=== PATIENT | female | born 1960 | race Caucasian/White ===

== ENCOUNTER 2016-12-22 06:45 | Outpatient (CLI) | payer MEDICARE | END 2016-12-22 06:46 | disposition home or self-care (01) | DX: K76.0 Fatty (change of) liver, not elsewhere classified (principal); R71.8 Other abnormality of red blood cells; E11.9 Type 2 diabetes mellitus without complications; E78.5 Hyperlipidemia, unspecified ==

== ENCOUNTER 2017-08-18 14:38 | Outpatient (CLI) | payer MEDICARE ==
[2017-08-18 13:17] LABS: BASOPHILS % (AUTO) 0.9 %; EOSINOPHILS # (AUTO) 0.2 10^3/uL (0.0-0.7); EOSINOPHILS % (AUTO) 3.6 %; HCT - HEMATOCRIT 42.3 % (37.0-47.0); HGB - HEMOGLOBIN 13.9 g/dL (12.0-16.0); LYMPHOCYTES # (AUTO) 1.3 10^3/uL (1.5-3.5); LYMPHOCYTES % (AUTO) 26.8 %; MEAN CORPUSCULAR HEMOGLOBIN 28.4 pg (27.0-31.0); MEAN CORPUSCULAR HGB CONC 32.8 g/dL (32.0-36.0); MEAN CORPUSCULAR VOLUME 86.6 fL (81.0-99.0); MEAN PLATELET VOLUME 8.4 fL (7.9-10.8); MONOCYTES # (AUTO) 0.3 10^3/uL (0.0-1.0); MONOCYTES % (AUTO) 5.4 %; NEUTROPHILS % (AUTO) 63.3 %; NUCLEATED RED BLOOD CELLS AUTO 0.1 /100WBC; RED BLOOD COUNT 4.88 10^6/uL (4.20-5.40); RED CELL DISTRIBUTION WIDTH 15.1 % (12.0-15.0); UNCORRECTED WHITE BLOOD COUNT 4.7 x10^3/uL; WHITE BLOOD COUNT 4.7 x10^3/uL (4.8-10.8)
[2017-08-18 13:52] LABS: ALBUMIN/GLOBULIN RATIO 1.1 (1.0-2.2); BILIRUBIN,TOTAL 0.7 mg/dL (0.2-1.0); BUN - BLOOD UREA NITROGEN 11 mg/dL (6-20); CARBON DIOXIDE - CO2 32 mmol/L (21-32); CHLORIDE 95 mmol/L (101-111); CHOL/HDL RATIO 7.9 (<4.4); CHOLESTEROL 245 mg/dL; CREATININE 0.6 mg/dL (0.4-1.0); GFR - MDRD 103 (>89); GLUCOSE 272 mg/dL (70-100); HDL CHOLESTEROL 31 mg/dL; POTASSIUM 4.2 mmol/L (3.5-5.0); SODIUM 136 mmol/L (135-145); TOTAL PROTEIN 7.2 g/dL (6.7-8.2); TRIGLYCERIDES 612 mg/dL
[2017-08-18 14:07] LABS: HEMOGLOBIN A1C 1.42 g/dL
[2017-08-18 14:29] LABS: LDL CHOLESTEROL,DIRECT 115 mg/dL
== END 2017-08-18 14:39 | disposition home or self-care (01) ==
LOC: LAB.N 14:38
PROVIDERS: ATTEND Nurse Practitioner Gerontology
DX: K76.0 Fatty (change of) liver, not elsewhere classified (principal); E78.5 Hyperlipidemia, unspecified; E11.9 Type 2 diabetes mellitus without complications; I50.9 Heart failure, unspecified
CPT/HCPCS: 36415; 80053; 80061; 83036; 83880; 85025

== ENCOUNTER 2017-09-05 13:44 | Outpatient (CLI) | payer MEDICARE | END 2017-09-05 13:45 | disposition home or self-care (01) | LOC: SC 13:44 | PROVIDERS: ATTEND Internal Medicine Pulmonary Disease | DX: G47.33 Obstructive sleep apnea (adult) (pediatric) (principal) | CPT/HCPCS: 99213; G0463; 99212 ==

== ENCOUNTER 2017-11-21 14:15 | Outpatient (CLI) | payer MEDICARE ==
[2017-11-21 19:10] LABS: CHOL/HDL RATIO 4.4 (<4.4); CHOLESTEROL 176 mg/dL; HDL CHOLESTEROL 40 mg/dL; LDL CHOLESTEROL,CALCULATED 85 mg/dL; LDL/HDL RATIO 2.1 (<4.4); VLDL CHOLESTEROL 51 mg/dL
[2017-11-21 19:45] LABS: HB2 TOTAL 14.5 g/dL; HEMOGLOBIN A1C 0.77 g/dL
== END 2017-11-21 14:16 | disposition home or self-care (01) ==
LOC: LAB.N 14:15
PROVIDERS: ATTEND Nurse Practitioner Gerontology
DX: E78.1 Pure hyperglyceridemia (principal); E11.9 Type 2 diabetes mellitus without complications
CPT/HCPCS: 36415; 80061; 82043; 83036

== ENCOUNTER 2017-11-29 21:33 | Outpatient (CLI) | payer MEDICARE | END 2017-11-29 21:34 | disposition home or self-care (01) | LOC: SC 21:33 | PROVIDERS: ATTEND Internal Medicine Pulmonary Disease | DX: G47.33 Obstructive sleep apnea (adult) (pediatric) (principal); R09.02 Hypoxemia | CPT/HCPCS: 95810 ==

== ENCOUNTER 2017-11-30 12:20 | Outpatient (CLI) | payer MEDICARE ==
--- NOTE | 2017-11-30 19:50 | XRAY Report ---
DATE OF SERVICE: 11/30/2017 TWO VIEW CHEST: 11/30/2017 CLINICAL INDICATION: Shortness of breath. COMPARISON: 01/05/2015 Frontal and lateral views of the chest demonstrate a normal cardiac silhouette. 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 No new consolidation, effusion, or pneumothorax is present. Basilar atelectasis appears unchanged. IMPRESSION: No evidence of acute cardiopulmonary disease. TD: 11/30/2017 20:49
== END 2017-11-30 12:21 | disposition home or self-care (01) ==
LOC: DI 12:20
PROVIDERS: ATTEND Nurse Practitioner Gerontology
DX: R06.02 Shortness of breath (principal)
CPT/HCPCS: 71046

== ENCOUNTER 2017-12-07 14:44 | Outpatient (CLI) | payer MEDICARE | END 2017-12-07 14:45 | disposition home or self-care (01) | LOC: LAB.N 14:44 | PROVIDERS: ATTEND Nurse Practitioner Gerontology | DX: R06.02 Shortness of breath (principal) | CPT/HCPCS: 36415; 83880; 85379 ==

== ENCOUNTER 2017-12-11 11:18 | Outpatient (CLI) | payer MEDICARE ==
[2017-12-11 13:17] LABS: CREATININE 0.7 mg/dL (0.4-1.0)
== END 2017-12-11 11:19 | disposition home or self-care (01) ==
LOC: LAB.N 11:18
PROVIDERS: ATTEND Nurse Practitioner Gerontology
DX: R06.02 Shortness of breath (principal); E11.9 Type 2 diabetes mellitus without complications
CPT/HCPCS: 36415; 82565

== ENCOUNTER 2017-12-25 11:52 | Outpatient (CLI) | payer MEDICARE ==
[2017-12-25] MEDS ORDERED: IOPAMIDOL-300 100 ML VIAL ONE (12:04)
[2017-12-25] MEDS ORDERED: IOPAMIDOL-300 100 ML VIAL IVP ONE (12:29)
--- NOTE | 2017-12-25 14:49 | CT Report ---
DATE OF SERVICE: 12/25/2017 CT PULMONARY ANGIOGRAM: 12/25/2017 CLINICAL INDICATION: Shortness of breath. COMPARISON: 01/03/2015. TECHNIQUE: Axial CT images of the chest were obtained with 58 mL Isovue 300 intravenously. Sagittal and coronal reconstructions were performed FINDINGS: The heart and great vessels demonstrate atherosclerotic calcifications. No hilar or mediastinal lymphadenopathy is present. No pulmonary embolus is noted. Bibasilar atelectasis is present. No pulmonary nodule or mass lesion is appreciated. No infiltrate, effusion, or pneumothorax is present. Limited evaluation of upper abdominal structures demonstrates normal adrenal glands. Right diaphragmatic eventration is stable. Osseous structures demonstrate degenerative changes. IMPRESSION: NO EVIDENCE OF PULMONARY EMBOLUS. NO SIGNIFICANT INTERVAL CHANGE. In accordance with CT protocol optimization, one or more of the following dose reduction techniques were utilized for this exam: automated exposure control, adjustment of mA and/or KV based on patient size, or use of iterative reconstructive technique. TD: 12/25/2017 14:48
== END 2017-12-25 11:53 | disposition home or self-care (01) ==
LOC: DI 11:52
PROVIDERS: ATTEND Nurse Practitioner Gerontology
DX: R06.02 Shortness of breath (principal)
CPT/HCPCS: 71275; Q9967

== ENCOUNTER 2018-01-22 14:06 | Outpatient (CLI) | payer MEDICARE | END 2018-01-22 14:07 | disposition home or self-care (01) | LOC: SC 14:06 | PROVIDERS: ATTEND Internal Medicine Pulmonary Disease | DX: G47.33 Obstructive sleep apnea (adult) (pediatric) (principal) | CPT/HCPCS: 99213; G0463; 99212 ==

== ENCOUNTER 2018-02-28 09:00 | Outpatient (CLI) | payer MEDICARE ==
[2018-02-28 13:00] LABS: CALCIUM 8.9 mg/dL (8.5-10.3); CREATININE 0.7 mg/dL (0.4-1.0)
[2018-02-28 13:34] LABS: HB2 TOTAL 15.2 g/dL; HEMOGLOBIN A1C 0.81 g/dL
== END 2018-02-28 09:01 | disposition home or self-care (01) ==
LOC: LAB.N 09:00
PROVIDERS: ATTEND Nurse Practitioner Gerontology
DX: E11.9 Type 2 diabetes mellitus without complications (principal)
CPT/HCPCS: 36415; 80048; 82043; 83036

== ENCOUNTER 2018-08-23 08:22 | Outpatient (CLI) | payer MEDICARE ==
[2018-08-23 13:05] LABS: CHOL/HDL RATIO 4.9 (<4.4); CHOLESTEROL 186 mg/dL; HDL CHOLESTEROL 38 mg/dL; LDL CHOLESTEROL,CALCULATED 98 mg/dL; LDL/HDL RATIO 2.6 (<4.4); VLDL CHOLESTEROL 50 mg/dL
== END 2018-08-23 08:23 | disposition home or self-care (01) ==
LOC: LAB.N 08:22
PROVIDERS: ATTEND Nurse Practitioner Gerontology
DX: E78.1 Pure hyperglyceridemia (principal)
CPT/HCPCS: 36415; 80061; 83721

== ENCOUNTER 2018-09-11 08:53 | Outpatient (CLI) | payer MEDICARE | END 2018-09-11 08:54 | disposition home or self-care (01) | LOC: RT.N 08:53 | PROVIDERS: ATTEND Nurse Practitioner Gerontology | DX: J44.9 Chronic obstructive pulmonary disease, unspecified (principal); I11.0 Hypertensive heart disease with heart failure; I50.9 Heart failure, unspecified; E78.5 Hyperlipidemia, unspecified; R01.1 Cardiac murmur, unspecified; E11.9 Type 2 diabetes mellitus without complications; R06.02 Shortness of breath; E78.1 Pure hyperglyceridemia | CPT/HCPCS: 36415; 80053; 82553; 83036; 83880; 84484; 85025; 93005 ==

== ENCOUNTER 2018-09-11 09:38 | Outpatient (CLI) | payer MEDICARE ==
[2018-09-11 12:21] LABS: BASOPHILS % (AUTO) 0.5 %; EOSINOPHILS # (AUTO) 0.2 10^3/uL (0.0-0.7); EOSINOPHILS % (AUTO) 3.9 %; HGB - HEMOGLOBIN 13.9 g/dL (12.0-16.0); LYMPHOCYTES # (AUTO) 1.2 10^3/uL (1.5-3.5); LYMPHOCYTES % (AUTO) 19.1 %; MEAN CORPUSCULAR HEMOGLOBIN 28.8 pg (27.0-31.0); MEAN CORPUSCULAR HGB CONC 33.2 g/dL (32.0-36.0); MEAN CORPUSCULAR VOLUME 86.7 fL (81.0-99.0); MEAN PLATELET VOLUME 8.3 fL (7.9-10.8); MONOCYTES # (AUTO) 0.3 10^3/uL (0.0-1.0); NEUTROPHILS # (AUTO) 4.3 10^3/uL (1.5-6.6); NEUTROPHILS % (AUTO) 71.5 %; PLT - PLATELET COUNT 233 10^3/uL (130-450); RED BLOOD COUNT 4.84 10^6/uL (4.20-5.40); RED CELL DISTRIBUTION WIDTH 14.8 % (12.0-15.0); WHITE BLOOD COUNT 6.1 x10^3/uL (4.8-10.8)
[2018-09-11 12:36] LABS: ALBUMIN 4.1 g/dL (3.2-5.5); ALBUMIN/GLOBULIN RATIO 1.2 (1.0-2.2); BILIRUBIN,TOTAL 0.8 mg/dL (0.2-1.0); CALCIUM 9.4 mg/dL (8.5-10.3); CREATININE 0.5 mg/dL (0.4-1.0); TOTAL PROTEIN 7.6 g/dL (6.7-8.2)
[2018-09-11 12:38] LABS: TROPONIN I < 0.04 ng/mL (<0.49)
[2018-09-11 12:40] LABS: CREATINE KINASE MB 9.5 ng/mL (0.6-6.3)
[2018-09-11 12:59] LABS: HB2 TOTAL 14.6 g/dL; HEMOGLOBIN A1C 0.77 g/dL
== END 2018-09-11 09:39 | disposition home or self-care (01) ==
LOC: LAB.N 09:38
PROVIDERS: ATTEND Nurse Practitioner Gerontology
DX: J44.9 Chronic obstructive pulmonary disease, unspecified (principal); R01.1 Cardiac murmur, unspecified; E11.9 Type 2 diabetes mellitus without complications; R06.02 Shortness of breath; I50.9 Heart failure, unspecified; E78.1 Pure hyperglyceridemia
CPT/HCPCS: 36415; 80053; 82553; 83036; 83880; 84484; 85025

== ENCOUNTER 2020-04-06 13:33 | Outpatient (CLI) | payer MEDICARE ==
[2020-04-06 18:01] LABS: BASOPHILS % (AUTO) 0.7 %; EOSINOPHILS # (AUTO) 0.3 10^3/uL (0.0-0.7); EOSINOPHILS % (AUTO) 4.2 %; HGB - HEMOGLOBIN 15.6 g/dL (12.0-16.0); LYMPHOCYTES # (AUTO) 1.2 10^3/uL (1.5-3.5); LYMPHOCYTES % (AUTO) 20.8 %; MEAN CORPUSCULAR HGB CONC 30.1 g/dL (32.0-36.0); MEAN CORPUSCULAR VOLUME 89.8 fL (81.0-99.0); MONOCYTES # (AUTO) 0.4 10^3/uL (0.0-1.0); MONOCYTES % (AUTO) 5.9 %; NEUTROPHILS % (AUTO) 67.9 %; PLT - PLATELET COUNT 231 10^3/uL (130-450); RED BLOOD COUNT 5.77 10^6/uL (4.20-5.40)
[2020-04-06 18:05] LABS: ALBUMIN 3.8 g/dL (3.2-5.5); ALBUMIN/GLOBULIN RATIO 1.1 (1.0-2.2); ALKALINE PHOSPHATASE 89 IU/L (42-121); ALT ALANINE AMINOTRANSFERASE 16 IU/L (10-60); AST ASPARTATE AMINOTRANSFERASE 15 IU/L (10-42); BILIRUBIN,TOTAL 0.7 mg/dL (0.2-1.0); BUN - BLOOD UREA NITROGEN 12 mg/dL (6-20); CALCIUM 8.8 mg/dL (8.5-10.3); CARBON DIOXIDE - CO2 33 mmol/L (21-32); CHLORIDE 94 mmol/L (101-111); CHOL/HDL RATIO 7.2 (<4.4); CHOLESTEROL 296 mg/dL; CREATININE 0.6 mg/dL (0.4-1.0); GLUCOSE 225 mg/dL (70-100); HDL CHOLESTEROL 41 mg/dL; LDL CHOLESTEROL,CALCULATED 175 mg/dL; LDL/HDL RATIO 4.3 (<4.4); SODIUM 137 mmol/L (135-145); TOTAL PROTEIN 7.4 g/dL (6.7-8.2); VLDL CHOLESTEROL 80 mg/dL
[2020-04-06 18:07] LABS: HB2 TOTAL 16.2 g/dL; HEMOGLOBIN A1C 1.29 g/dL; HEMOGLOBIN A1C % 9.4 % (4.6-6.2)
== END 2020-04-06 23:59 | disposition home or self-care (01) ==
LOC: LAB.WCP 13:33
PROVIDERS: ATTEND Family Medicine
DX: E78.1 Pure hyperglyceridemia (principal); E78.5 Hyperlipidemia, unspecified; E11.9 Type 2 diabetes mellitus without complications; I10 Essential (primary) hypertension
CPT/HCPCS: 36415; 80053; 80061; 83036; 83721; 84443; 85025

== ENCOUNTER 2020-11-03 07:00 | Outpatient (CLI) | payer MEDICARE, MEDICAID ==
[2020-11-03 18:41] LABS: BASOPHILS % (AUTO) 0.7 %; EOSINOPHILS # (AUTO) 0.3 10^3/uL (0.0-0.7); EOSINOPHILS % (AUTO) 4.2 %; HGB - HEMOGLOBIN 16.7 g/dL (12.0-16.0); LYMPHOCYTES # (AUTO) 1.8 10^3/uL (1.5-3.5); LYMPHOCYTES % (AUTO) 29.4 %; MEAN CORPUSCULAR HGB CONC 30.9 g/dL (32.0-36.0); MEAN CORPUSCULAR VOLUME 94.1 fL (81.0-99.0); MEAN PLATELET VOLUME 10.3 fL (7.9-10.8); MONOCYTES # (AUTO) 0.4 10^3/uL (0.0-1.0); MONOCYTES % (AUTO) 5.9 %; NEUTROPHILS # (AUTO) 3.6 10^3/uL (1.5-6.6); NEUTROPHILS % (AUTO) 59.3 %; PLT - PLATELET COUNT 258 10^3/uL (130-450); RED BLOOD COUNT 5.75 10^6/uL (4.20-5.40); RED CELL DISTRIBUTION WIDTH 13.9 % (12.0-15.0); WHITE BLOOD COUNT 6.1 x10^3/uL (4.8-10.8)
[2020-11-03 18:56] LABS: HEMOGLOBIN A1c% 7.9 % (4.27-6.07)
[2020-11-03 19:01] LABS: ALBUMIN 4.4 g/dL (3.2-5.5); ALBUMIN/GLOBULIN RATIO 1.2 (1.0-2.2); ALKALINE PHOSPHATASE 91 IU/L (42-121); ALT ALANINE AMINOTRANSFERASE 23 IU/L (10-60); AST ASPARTATE AMINOTRANSFERASE 20 IU/L (10-42); BUN - BLOOD UREA NITROGEN 11 mg/dL (6-20); CALCIUM 9.5 mg/dL (8.5-10.3); CARBON DIOXIDE - CO2 33 mmol/L (21-32); CHLORIDE 95 mmol/L (101-111); CHOL/HDL RATIO 7.4 (<4.4); CHOLESTEROL 272 mg/dL; CREATININE 0.6 mg/dL (0.4-1.0); GLUCOSE 181 mg/dL (70-100); HDL CHOLESTEROL 37 mg/dL; LDL CHOLESTEROL,CALCULATED 160 mg/dL; LDL/HDL RATIO 4.3 (<4.4); SODIUM 139 mmol/L (135-145); TOTAL PROTEIN 8.1 g/dL (6.7-8.2); VLDL CHOLESTEROL 75 mg/dL
[2020-11-03 19:03] LABS: CREATININE,URINE 52.4 mg/dL; MICROALBUM/CREATININE RATIO,UR 135.5 ug/mg (<30.0); MICROALBUMIN,URINE 7.1 mg/dL (0-300.0)
== END 2020-11-03 23:59 | disposition home or self-care (01) ==
LOC: LAB.WCP 07:00
PROVIDERS: ATTEND Family Medicine
DX: K76.0 Fatty (change of) liver, not elsewhere classified (principal); E11.9 Type 2 diabetes mellitus without complications; E78.1 Pure hyperglyceridemia; R01.1 Cardiac murmur, unspecified; R71.8 Other abnormality of red blood cells
CPT/HCPCS: 36415; 80053; 80061; 82043; 82570; 83036; 83721; 85025

== ENCOUNTER 2020-11-11 08:00 | Outpatient (CLI) | payer MEDICARE, MEDICAID | END 2020-11-11 23:59 | disposition home or self-care (01) | LOC: LAB.WCP 08:00 | PROVIDERS: ATTEND Internal Medicine | DX: J45.998 Other asthma (principal) | CPT/HCPCS: 36415; 81599; 82784; 82785; 85004; 85048 ==

== ENCOUNTER 2020-11-22 09:38 | Emergency (ER) | payer MEDICARE, MEDICAID ==
[2020-11-22 10:20] LABS: VBG BASE EXCESS 38.6 mmol/L (-2 - +2); VBG PCO2 73.9 mmHg (41-51); VBG PH 7.309 (7.31-7.41); VBG PO2 36.8 mmHg (25-47)
[2020-11-22 10:24] LABS: BASOPHILS # (AUTO) 0.1 10^3/uL (0.0-0.1); BASOPHILS % (AUTO) 0.5 %; EOSINOPHILS # (AUTO) 0.1 10^3/uL (0.0-0.7); EOSINOPHILS % (AUTO) 1.4 %; HGB - HEMOGLOBIN 14.6 g/dL (12.0-16.0); LYMPHOCYTES % (AUTO) 10.1 %; MEAN CORPUSCULAR HEMOGLOBIN 29.3 pg (27.0-31.0); MEAN CORPUSCULAR VOLUME 94.4 fL (81.0-99.0); MEAN PLATELET VOLUME 10.2 fL (7.9-10.8); MONOCYTES # (AUTO) 0.6 10^3/uL (0.0-1.0); MONOCYTES % (AUTO) 6.5 %; NEUTROPHILS # (AUTO) 7.9 10^3/uL (1.5-6.6); NEUTROPHILS % (AUTO) 80.6 %; PLT - PLATELET COUNT 215 10^3/uL (130-450); RED BLOOD COUNT 4.99 10^6/uL (4.20-5.40); WHITE BLOOD COUNT 9.8 x10^3/uL (4.8-10.8)
--- NOTE | 2020-11-22 10:31 | ED Physician Documentation ---
History of Present Illness - Stated complaint Stated Complaint: SOA - Chief complaint Chief Complaint: Resp - History obtained from History obtained from: Patient - Additonal information Additional information: 60-year-old woman with past medical history of COPD on 2 L home O2, sleep apnea on nighttime CPAP, and diabetes presents with fatigue over the past several days. Patient states she has not been sleeping well and started a new sleep medication 4 days ago, but found that it made her groggy and confused, also resulting in a hangover in the mornings with daytime fatigue. She endorses increasing shortness of breath since starting and has also been more more tired. Denies fevers, back pain, chest pain, nausea or dizziness. denies significant leg swelling. Review of Systems Ten Systems: 10 systems reviewed and negative Constitutional: reports: Myalgias, Fatigue. denies: Fever, Chills Respiratory: reports: Dyspnea. 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 - Present Medications Home Medications: Ambulatory Orders Medication Instructions Recorded Confirmed Albuterol [Ventolin Hfa] 2 puffs INH Q4H PRN 06/28/13 01/03/15 Amlodipine Besylate 10 mg PO DAILY 06/28/13 01/03/15 Fluticasone/Salmeterol 500/50 1 puffs INH BID 06/28/13 01/03/15 [Advair 500 Mcg/50 Mcg] Furosemide [Lasix] 40 mg PO DAILY 06/28/13 01/03/15 Ipratropium/Albuterol [Duoneb] 3 ml INH Q6H 06/28/13 01/03/15 Loratadine 10 mg PO DAILY 06/28/13 01/03/15 Losartan [Cozaar] 100 mg PO DAILY 06/28/13 01/03/15 Lovastatin [Mevacor] 20 mg PO DAILY 06/28/13 01/05/15 Montelukast Sodium [Singulair] 10 mg PO DAILY 06/28/13 01/05/15 Omeprazole [PriLOSEC] 20 mg PO BID 06/28/13 01/03/15 Fluoxetine HCl [Prozac] 20 mg PO BID 01/03/15 01/03/15 Aspirin [Aspir-Low] 81 mg PO 01/05/15 01/05/15 - Allergies Allergies/Adverse Reactions: Allergies Allergy/AdvReac Type Severity Reaction Status Date / Time diphenhydramine HCl * AdvReac Unknown Hallucinati Verified 11/22/20 09:49 [From Benadryl] ons lisinopril AdvReac Unknown Rash Verified 11/22/20 09:49 - Social History Does the pt smoke?: No Smoking Status: Never smoker Does the pt drink ETOH?: No Does the pt have substance abuse?: No - Immunizations Immunizations are current?: Yes - POLST Patient has POLST: No PD ED PE NORMAL - Vitals Vital signs reviewed: Yes - General General: Alert and oriented X 3 - HEENT HEENT: Atraumatic, PERRL, EOMI - Neck Neck: Supple, no meningeal sign - Cardiac Cardiac: RRR - Respiratory Respiratory: No respiratory distress, Other (Minimal bilateral end expiratory wheezing) - Abdomen Abdomen: Non tender, Non distended - Female Female : Deferred - Rectal Rectal: Deferred - Derm Derm: Normal color - Extremities Extremities: No deformity, No edema - Neuro Neuro: Alert and oriented X 3 - Psych Psych: Normal mood, Normal affect Results - Vitals Vitals: Vital Signs - 24 hr 11/22/20 11/22/20 09:43 10:17 Temperature 37 C Heart Rate 109 H 88 Respiratory 16 20 Rate Blood Pressure 190/61 H 175/74 H O2 Saturation 82 L 88 L Oxygen O2 Source [] Nasal cannula O2 Source Nasal cannula Oxygen Flow Rate 2 - EKG (time done) 0955 Rate: Rate (enter#) (97) Rhythm: NSR Compare to prior EKG: Unchanged from prior EKG (09/11/18) - Labs Labs: Laboratory Tests 11/22/20 11/22/20 11/22/20 10:03 10:03 10:03 WBC 9.8 RBC 4.99 Hgb 14.6 Hct 47.1 H MCV 94.4 MCH 29.3 MCHC 31.0 L RDW 14.0 Plt Count 215 MPV 10.2 Neut # (Auto) 7.9 H Lymph # (Auto) 1.0 L Atkinson # (Auto) 0.6 Eos # (Auto) 0.1 Baso # (Auto) 0.1 Absolute Nucleated RBC 0.02 Nucleated RBC % 0.2 Bld Gas Analysis Time ABG pH ABG pCO2 ABG pO2 ABG HCO3 ABG Total CO2 ABG Base Excess Prieto Test VBG pH VBG pCO2 VBG pO2 VBG HCO3 VBG Total CO2 VBG Base Excess Sodium 139 Potassium 4.2 Chloride 90 L Carbon Dioxide 34 H Anion Gap 15.0 H BUN 9 Creatinine 0.6 Estimated GFR (MDRD) 102 Glucose 276 H Lactic Acid Calcium 9.3 Total Bilirubin 1.1 H AST 23 ALT 37 Alkaline Phosphatase 94 Troponin I High Sens 10.7 B-Natriuretic Peptide Total Protein 7.7 Albumin 3.9 Globulin 3.8 Albumin/Globulin Ratio 1.0 Lipase 25 Nasal Adenovirus (PCR) Nasal B. parapertussis DNA (PCR) Nasal Coronavir 229E PCR Nasal Coronavir HKU1 PCR Nasal Coronavir NL63 PCR Nasal Coronavir OC43 PCR Nasal Enterovir/Rhinovir PCR Nasal Influenza B PCR Nasal Influenza A PCR Nasal Parainfluen 1 PCR Nasal Parainfluen 2 PCR Nasal Parainfluen 3 PCR Nasal Parainfluen 4 PCR Nasal RSV (PCR) Nasal B.pertussis DNA PCR Nasal C.pneumoniae (PCR) Allen Human Metapneumo PCR Nasal M.pneumoniae (PCR) Nasal SARS-CoV-2 (PCR) 11/22/20 11/22/20 11/22/20 10:03 10:03 10:03 WBC RBC Hgb Hct MCV MCH MCHC RDW Plt Count MPV Neut # (Auto) Lymph # (Auto) Atkinson # (Auto) Eos # (Auto) Baso # (Auto) Absolute Nucleated RBC Nucleated RBC % Bld Gas Analysis Time ABG pH ABG pCO2 ABG pO2 ABG HCO3 ABG Total CO2 ABG Base Excess Prieto Test VBG pH 7.309 L VBG pCO2 73.9 H VBG pO2 36.8 VBG HCO3 36.3 H VBG Total CO2 7.0 L VBG Base Excess 38.6 H Sodium Potassium Chloride Carbon Dioxide Anion Gap BUN Creatinine Estimated GFR (MDRD) Glucose Lactic Acid 1.6 Calcium Total Bilirubin AST ALT Alkaline Phosphatase Troponin I High Sens B-Natriuretic Peptide 128 H Total Protein Albumin Globulin Albumin/Globulin Ratio Lipase Nasal Adenovirus (PCR) Nasal B. parapertussis DNA (PCR) Nasal Coronavir 229E PCR Nasal Coronavir HKU1 PCR Nasal Coronavir NL63 PCR Nasal Coronavir OC43 PCR Nasal Enterovir/Rhinovir PCR Nasal Influenza B PCR Nasal Influenza A PCR Nasal Parainfluen 1 PCR Nasal Parainfluen 2 PCR Nasal Parainfluen 3 PCR Nasal Parainfluen 4 PCR Nasal RSV (PCR) Nasal B.pertussis DNA PCR Nasal C.pneumoniae (PCR) Allen Human Metapneumo PCR Nasal M.pneumoniae (PCR) Nasal SARS-CoV-2 (PCR) 11/22/20 11/22/20 10:46 12:05 WBC RBC Hgb Hct MCV MCH MCHC RDW Plt Count MPV Neut # (Auto) Lymph # (Auto) Atkinson # (Auto) Eos # (Auto) Baso # (Auto) Absolute Nucleated RBC Nucleated RBC % Bld Gas Analysis Time 1212 ABG pH 7.32 L ABG pCO2 69 H* ABG pO2 60 L ABG HCO3 34.3 H ABG Total CO2 36.4 H ABG Base Excess 5.6 H Prieto Test POSITIVE VBG pH VBG pCO2 VBG pO2 VBG HCO3 VBG Total CO2 VBG Base Excess Sodium Potassium Chloride Carbon Dioxide Anion Gap BUN Creatinine Estimated GFR (MDRD) Glucose Lactic Acid Calcium Total Bilirubin AST ALT Alkaline Phosphatase Troponin I High Sens B-Natriuretic Peptide Total Protein Albumin Globulin Albumin/Globulin Ratio Lipase Nasal Adenovirus (PCR) NOT DETECTED Nasal B. parapertussis DNA (PCR) NOT DETECTED Nasal Coronavir 229E PCR NOT DETECTED Nasal Coronavir HKU1 PCR NOT DETECTED Nasal Coronavir NL63 PCR NOT DETECTED Nasal Coronavir OC43 PCR NOT DETECTED Nasal Enterovir/Rhinovir PCR NOT DETECTED Nasal Influenza B PCR NOT DETECTED Nasal Influenza A PCR NOT DETECTED Nasal Parainfluen 1 PCR NOT DETECTED Nasal Parainfluen 2 PCR NOT DETECTED Nasal Parainfluen 3 PCR NOT DETECTED Nasal Parainfluen 4 PCR NOT DETECTED Nasal RSV (PCR) NOT DETECTED Nasal B.pertussis DNA PCR NOT DETECTED Nasal C.pneumoniae (PCR) NOT DETECTED Allen Human Metapneumo PCR NOT DETECTED Nasal M.pneumoniae (PCR) NOT DETECTED Nasal SARS-CoV-2 (PCR) NOT DETECTED PD MEDICAL DECISION MAKING - ED course Complexity details: reviewed results, d/w patient ED course: 40-year-old gentleman with history of COPD on home oxygen since with worsening shortness of breath. Patient states that she he needs sleep medicine a few days ago has been sleeping very deeply and and wakes up fatigued. she took home nebulizers without relief. in the ed she has minimal wheezing. blood gas showing co2 retention likely 2/2 marco. After reviewing her results we discussed that she should stop taking this medicine and follow-up with her primary doctor. Reviewed the patient's presentation with Sourav Queen (hospitalist) is not a candidate for observation at this time. Respiratory therapy came down to evaluate her, and educated her on chest PT. also ambulated her on 2L o2, with o2 sat maintaining in mid80s. patient amenable to discharge and outpatient follow up. strict return precautions given. Departure - Departure Disposition: 01 Home, Self Care Clinical Impression: MARCO (obstructive sleep apnea) Condition: Good Instructions: Apnea Obstructive Sleep Ch Comments: You have been seen in the emergency department for sleep apnea. Stop taking the sleep medication that you have been taking the past 4 days. It is likely that this is causing CO2 retention and contributing to your fatigue. Make sure to use your cpap every night. Follow-up with your primary doctor this week. Return to the ed for any new or worsening symptoms.
[2020-11-22 10:38] LABS: ALBUMIN 3.9 g/dL (3.2-5.5); BILIRUBIN,TOTAL 1.1 mg/dL (0.2-1.0); CALCIUM 9.3 mg/dL (8.5-10.3); CREATININE 0.6 mg/dL (0.4-1.0); TOTAL PROTEIN 7.7 g/dL (6.7-8.2)
--- NOTE | 2020-11-22 10:45 | XRAY Report ---
PROCEDURE: Chest 1 View X-Ray INDICATIONS: Chest pain TECHNIQUE: One view of the chest was acquired. COMPARISON: CT chest, 12/25/2017. Chest x-ray 2 views, 11/30/2017 FINDINGS: Surgical changes and devices: None. Lungs and pleura: Left basilar opacities most likely scars or atelectasis. There is no significant ch kylah from the last exam dated 11/30/2017. No pleural effusions or pneumothorax. Mediastinum: Mediastinal contours appear normal. Heart size is normal. Bones and chest wall: No suspicious bony lesions. Overlying soft tissues appear unremarkable. IMPRESSION: Left basilar scars or atelectasis. No acute abnormalities. Reviewed by: Elly Haider MD on 11/22/2020 10:44 AM PST Approved by: Elly Haider MD on 11/22/2020 10:44 AM [facility] Station ID: [id number]
[2020-11-22 11:48] LABS: C. PNEUMONIAE- RESP PCR PANEL NOT DETECTED
[2020-11-22 12:21] LABS: ABG BASE EXCESS 5.6 mmol/L (-2.0-3.0); ABG HCO3 34.3 mmol/L (22.0-26.0); ABG PCO2 69 mmHg (34-45); ABG PH 7.32 (7.35-7.45); ABG PO2 60 mmHg (80-100); ABG TCO2 36.4 MMOL/L (21.0-29.0)
[2020-11-22 12:22] LABS: ALLEN TEST POSITIVE
[2020-11-22 12:49] VITALS: BP 166/92
== END 2020-11-22 12:56 | disposition home or self-care (01) ==
LOC: ED 09:38
DX: G47.33 Obstructive sleep apnea (adult) (pediatric) (principal); J44.9 Chronic obstructive pulmonary disease, unspecified; Z99.81 Dependence on supplemental oxygen; I10 Essential (primary) hypertension; E11.9 Type 2 diabetes mellitus without complications; Z20.828 Contact with and (suspected) exposure to other viral communicable diseases
CPT/HCPCS: 0202U; 36415; 36600; 80053; 82803; 83605; 83690; 83880; 84484; 85025; 93005; 94761; 99284

== ENCOUNTER 2020-12-31 13:16 | Outpatient (CLI) | payer MEDICARE ==
--- NOTE | 2020-12-31 17:22 | DEXA Report ---
PROCEDURE: Dexa Spine and/or Hip INDICATIONS: POSTMENOPAUSAL TECHNIQUE: Dual energy x-ray absorptiometry (DXA) was performed on a Solidarium System. Regions measur ed are the AP Spine, femoral neck, and if needed forearm. COMPARISON: None. FINDINGS: Lumbar Spine: Bone Mineral Density 1.4-2 g/cm/cm,T score 1.9, normal bone density Left Femoral Neck: Bone Mineral Density 1.049 g/cm/cm, T score 0.3, normal bone density (T score greater or equal to -1.0: NORMAL) (T score from -1.1 to -2.4: OSTEOPENIA) (T score less than or equal to -2.5 to: OSTEOPOROSIS) Impression: Normal bone mineral density. Patients with diagnosis of osteoporosis or osteopenia should have regular bone mineral density assess ment. For those eligible for Medicare, routine testing is allowed once every 2 years. Testing frequ ency can be increased for patients who have rapidly progressing disease or for those who are receivin g medical therapy to restore bone mass. Reviewed by: Sy Her MD on 12/31/2020 5:20 PM PST Approved by: Sy Her MD on 12/31/2020 5:20 PM PST Station ID: [id number]
== END 2020-12-31 13:17 | disposition home or self-care (01) ==
LOC: DI 13:16
PROVIDERS: ATTEND Internal Medicine
DX: Z78.0 Asymptomatic menopausal state (principal)

== ENCOUNTER 2020-12-31 13:19 | Outpatient (CLI) | payer MEDICARE ==
--- NOTE | 2021-01-01 10:45 | Mammography Report ---
BILATERAL DIGITAL SCREENING MAMMOGRAM 3D/2D: 12/31/2020 CLINICAL: Routine screening. Comparison is made to exam dated: 01/04/2016 mammogram - [facility]. There are sca ttered fibroglandular elements in both breasts. There are benign calcifications in the right breast. There also are benign post operative findings i n the right breast. No significant masses, calcifications, or other findings are seen in either breast. There has been no significant interval change. IMPRESSION: BENIGN There is no mammographic evidence of malignancy. A 1 year screening mammogram is recommended. This exam was interpreted at Station ID: [id number]. NOTE: For mammograms, a report in lay terms will be sent to the patient. Approximately 15% of breast malignancies will not be visualized mammographically. In the management of a palpable breast mass, a negative mammogram must not discourage biopsy of a clinically suspicious lesion. Electronically Signed By: Job Boggs M.D. ddp/penrad:12/31/2020 14:43:48 ACR BI-RADS Category 2: Benign Finding(s) 3342F PARENCHYMAL PATTERN: (A) - The breast(s) demonstrate(s) scattered fibroglandular densities. BI-RADS CATEGORY: (2) - 2 RECOMMENDATION: (ANNUAL) - Recommend routine annual screening mammography. [id number] 1 year screening LATERALITY: (B)
== END 2020-12-31 13:20 | disposition home or self-care (01) ==
LOC: DI 13:19
PROVIDERS: ATTEND Internal Medicine
DX: Z12.31 Encounter for screening mammogram for malignant neoplasm of breast (principal)

== ENCOUNTER 2021-02-28 17:19 | Outpatient (CLI) | payer MEDICARE, MEDICAID | END 2021-02-28 17:20 | disposition critical access hospital (66) | LOC: EMS 17:19 | DX: S01.81XA Laceration without foreign body of other part of head, initial encounter (principal); W01.0XXA Fall on same level from slipping, tripping and stumbling without subsequent striking against object, initial encounter; Y93.K1 Activity, walking an animal; Y92.830 Public park as the place of occurrence of the external cause | CPT/HCPCS: A0425; A0429 ==

== ENCOUNTER 2021-02-28 17:36 | Emergency (ER) | payer MEDICARE, MEDICAID ==
[2021-02-28] MEDS ORDERED: LIDOCAINE-EPINEPH-TETRACAINE 3 ML SYRINGE TOP STA (17:43)
--- OUTSIDE RECORDS SUMMARY | 2021-02-28 17:52 | EXTERNAL MEDICAL SUMMARY RPT | Continuity of Care Document ---
:1960 Demographics Phone Unavailable Preferred Language Unknown Marital Status Unknown Hindu Affiliation Unknown Race Unknown Ethnic Group Unknown Author Organization [facility] Address [address] [place] [address] Phone Social History date description facility [phone]
--- NOTE | 2021-02-28 18:12 | CT Report ---
PROCEDURE: HEAD WO INDICATIONS: fall, head injury TECHNIQUE: Noncontrast 4.5 mm thick angled axial sections acquired from the foramen magnum to the vertex. For r adiation dose reduction, the following was used: automated exposure control, adjustment of mA and/or kV according to patient size. COMPARISON: CT head 06/19/2010 FINDINGS: Image quality: Excellent. CSF spaces: Basal cisterns are patent. No extra-axial fluid collections. Ventricles are normal in size and shape. Brain: No midline shift. No intracranial masses or hemorrhage. Portillo-white matter interface is norm al. Skull and face: There is a moderate subcutaneous right frontal scalp hematoma. No radiopaque foreign body is seen. A few foci of gas are noted in the adjacent subcutaneous tissues. Calvarium and visual ized facial bones are intact, without suspicious lesions. Sinuses: A mucous retention cyst or polyp is seen in the right sphenoid sinus. The visualized parana saige paranasal sinuses and mastoid air cells are otherwise clear. IMPRESSION: Right frontal scalp subcutaneous hematoma with foci of subcutaneous gas. No underlying skull fracture . No acute intracranial hemorrhage. Reviewed by: José Miguel Beckford MD on 02/28/2021 6:11 PM PDT Approved by: José Miguel Beckford MD on 02/28/2021 6:11 PM PDT Station ID: [id number]
--- NOTE | 2021-02-28 18:21 | ED Physician Documentation ---
PD HPI HEAD INJURY - Stated complaint Stated Complaint: HEAD LAC - Chief complaint Chief Complaint: Trauma Hd/Nk - History obtained from History obtained from: Patient, EMS - History of Present Illness Mechanism of head injury: Fell Where head injury occurred: [place] Timing - onset: How many hours ago (1) Pain level max: 6 Pain level now: 2 Location of injury: Front Quality of pain: Pain Associated symptoms: No: LOC, AMS, Amnesia, Nausea / vomiting, Neck pain, Paresthesias, Seizures, Ear drainage, Nasal drainage Symptoms improve with: Rest Symptoms worsen with: Palpation Contributing factors: No: Anticoagulated, Intoxicated Recently seen: Not recently seen - Additional information Additional information: Patient was walking her dogs in the park when she tripped fell hitting her forehead and causing a laceration. No loss of consciousness. No vomiting. No neck or back pain. Not anticoagulated. Not intoxicated. She sustained 2 cm laceration of the forehead. Tetanus shot is up-to-date. Review of Systems Ten Systems: 10 systems reviewed and negative Constitutional: denies: Fever, Chills Cardiac: denies: Chest pain / pressure Respiratory: denies: Cough GI: denies: Nausea, Vomiting Skin: denies: Rash Musculoskeletal: denies: Neck pain, Back pain Neurologic: denies: Focal weakness, Numbness, Confused, LOC PD PAST MEDICAL HISTORY - Past Medical History Past Medical History: Yes Cardiovascular: Hypertension, High cholesterol Respiratory: Asthma Endocrine/Autoimmune: Type 2 diabetes GI: GERD : Incontinence HEENT: Other Psych: Depression - Past Surgical History Past Surgical History: Yes 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 - Present Medications Home Medications: Ambulatory Orders Medication Instructions Recorded Confirmed Albuterol [Ventolin Hfa] 2 puffs INH Q4H PRN 06/28/13 01/03/15 Amlodipine Besylate 10 mg PO DAILY 06/28/13 01/03/15 Fluticasone/Salmeterol 500/50 1 puffs INH BID 06/28/13 01/03/15 [Advair 500 Mcg/50 Mcg] Furosemide [Lasix] 40 mg PO DAILY 06/28/13 01/03/15 Ipratropium/Albuterol [Duoneb] 3 ml INH Q6H 06/28/13 01/03/15 Loratadine 10 mg PO DAILY 06/28/13 01/03/15 Losartan [Cozaar] 100 mg PO DAILY 06/28/13 01/03/15 Lovastatin [Mevacor] 20 mg PO DAILY 06/28/13 01/05/15 Montelukast Sodium [Singulair] 10 mg PO DAILY 06/28/13 01/05/15 Omeprazole [PriLOSEC] 20 mg PO BID 06/28/13 01/03/15 Fluoxetine HCl [Prozac] 20 mg PO BID 01/03/15 01/03/15 Aspirin [Aspir-Low] 81 mg PO 01/05/15 01/05/15 - Allergies Allergies/Adverse Reactions: Allergies Allergy/AdvReac Type Severity Reaction Status Date / Time diphenhydramine HCl * AdvReac Unknown Hallucinati Verified 02/28/21 17:44 [From Benadryl] ons lisinopril AdvReac Unknown Rash Verified 02/28/21 17:44 - Social History Does the pt smoke?: No Smoking Status: Never smoker Does the pt drink ETOH?: No Does the pt have substance abuse?: No - Immunizations Immunizations are current?: Yes - POLST Patient has POLST: No PD ED PE NORMAL - Vitals Vital signs reviewed: Yes - General General: Alert and oriented X 3, No acute distress, Well developed/nourished - HEENT HEENT: PERRL, EOMI, Other (2 cm laceration just inside the hairline on the right forehead. No active bleeding. There is a scalp hematoma here as well) - Neck Neck: Supple, no meningeal sign, No bony TTP (No step-off or deformity) - Cardiac Cardiac: RRR, No murmur - Respiratory Respiratory: Clear bilaterally - Abdomen Abdomen: Normal bowel sounds, Soft, Non tender, Non distended - Back Back: No spinal TTP (No step-off or deformity) - Derm Derm: Warm and dry - Extremities Extremities: Normal ROM s pain - Neuro Neuro: Alert and oriented X 3, automation technician 2-12 intact, No motor deficit, No sensory deficit, Normal speech Eye Opening: Spontaneous Motor: Obeys Commands Verbal: Oriented GCS Score: 15 - Psych Psych: Normal mood, Normal affect Results - Vitals Vitals: Vital Signs - 24 hr 02/28/21 02/28/21 02/28/21 17:40 17:50 19:03 Temperature 36.3 C L 36.5 C 37.3 C Heart Rate 56 L 56 L 63 Respiratory 12 12 16 Rate Blood Pressure 156/77 H 156/77 H 146/84 H O2 Saturation 99 99 98 Oxygen O2 Source [With Activity] Nasal cannula O2 Source Room air - Rads (name of study) head CT Radiology: Prelim report reviewed, EMP read contemporaneously, See rad report (Right frontal scalp subcutaneous hematoma with foci of subcutaneous gas. No underlying skull fracture. No acute intracranial hemorrhage. ) Procedures - Laceration (location) Right frontal scalp Length in cm: 2 Wound type: Linear, Into subcut fat Neurovascular status: Sensory intact, Motor intact, Vascular intact Anesthesia: LET Wound preparation: Irrigated copiously NS Skin layer closure: [place] Other: Patient tolerated well, No complications, Neurovascular intact, Tetanus UTD PD MEDICAL DECISION MAKING - ED course Complexity details: reviewed results, re-evaluated patient, considered differential, d/w patient ED course: Laceration repaired with shy. Tolerated well. No acute findings on head CT. No neck or back pain. Declines any pain medication here. Tetanus up-to-date. Warnings of infection and instructions on wound care given at bedside. Also counseled on how to minimize scarring. Patient counseled regarding signs and symptoms for which I believe and urgent re-evaluation would be necessary. Patient with good understanding of and agreement to plan and is comfortable going home at this time This document was made in part using voice recognition software. While efforts are made to proofread this document, sound alike and grammatical errors may occur. Departure - Departure Disposition: 01 Home, Self Care Clinical Impression: Forehead laceration Qualifiers: Encounter type: initial encounter Qualified Code(s): S01.81XA - Laceration without foreign body of other part of head, initial encounter Closed head injury Qualifiers: Encounter type: initial encounter Qualified Code(s): S09.90XA - Unspecified injury of head, initial encounter Condition: Good Instructions: ED Head Injury Closed, ED Laceration Scalp Stitch Or Stap Follow-Up: Mahin Elliott MD [Primary Care Provider] - Comments: Follow-up with your doctor in about 7-10 days for staple removal. Keep the wound clean. Return if you notice redness, swelling or drainage from the wound. Your head CT does not show any acute abnormalities today. Discharge Date/Time: 02/28/21 19:04
[2021-02-28 19:04] VITALS: BP 146/84
== END 2021-02-28 19:04 | disposition home or self-care (01) ==
LOC: EDBD → EDUNIT# → ED 17:36
DX: S01.81XA Laceration without foreign body of other part of head, initial encounter (principal); S09.90XA Unspecified injury of head, initial encounter; W01.0XXA Fall on same level from slipping, tripping and stumbling without subsequent striking against object, initial encounter; Y93.K1 Activity, walking an animal; Y92.830 Public park as the place of occurrence of the external cause; I10 Essential (primary) hypertension; E11.9 Type 2 diabetes mellitus without complications
CPT/HCPCS: 12001; 99282; 99284

== ENCOUNTER 2021-03-05 12:03 | Outpatient (CLI) | payer MEDICARE, MEDICAID ==
--- NOTE | 2021-03-05 12:58 | XRAY Report ---
PROCEDURE: Ribs w/PA Chest RT INDICATIONS: RIGHT SIDED RIB PAIN TECHNIQUE: 3 views of the right ribs were acquired, along with a single view chest. COMPARISON: Prior chest plain film 11/22/[address] angiogram 12/25/2017. FINDINGS: Surgical changes and devices: None. Bones and chest wall: No fractures or dislocations. No suspicious bony lesions. Overlying soft tis sues appear unremarkable. Lungs and pleura: No pleural effusions or pneumothorax. Lungs appear clear. The prior CT angiogram shows a posterior right diaphragmatic hernia producing a fat herniation from the upper abdomen into the lower right chest no acute trauma found, no acute disease identified. No rib fractures seen. Mediastinum: Mediastinal contours appear normal. Heart size is normal. 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 No current rib trauma found. No definite acute disease over the chest. Reviewed by: Shahram Adame MD on 03/05/2021 12:57 PM PDT Approved by: Shahram Adame MD on 03/05/2021 12:57 PM PDT Station ID: [id number]
== END 2021-03-05 23:59 | disposition home or self-care (01) ==
LOC: DI.N 12:03
PROVIDERS: ATTEND Family Medicine
DX: K44.9 Diaphragmatic hernia without obstruction or gangrene (principal); R07.81 Pleurodynia

== ENCOUNTER 2021-10-12 13:44 | Outpatient (CLI) | payer MEDICARE, MEDICAID ==
[2021-10-12 21:18] LABS: BASOPHILS % (AUTO) 0.7 %; EOSINOPHILS # (AUTO) 0.2 10^3/uL (0.0-0.7); EOSINOPHILS % (AUTO) 4.1 %; HCT - HEMATOCRIT 50.4 % (37.0-47.0); HGB - HEMOGLOBIN 15.6 g/dL (12.0-16.0); LYMPHOCYTES # (AUTO) 1.3 10^3/uL (1.5-3.5); LYMPHOCYTES % (AUTO) 23.2 %; MEAN CORPUSCULAR HEMOGLOBIN 29.2 pg (27.0-31.0); MEAN CORPUSCULAR VOLUME 94.4 fL (81.0-99.0); MEAN PLATELET VOLUME 10.5 fL (7.9-10.8); MONOCYTES # (AUTO) 0.4 10^3/uL (0.0-1.0); MONOCYTES % (AUTO) 6.4 %; NEUTROPHILS # (AUTO) 3.7 10^3/uL (1.5-6.6); NEUTROPHILS % (AUTO) 65.2 %; PLT - PLATELET COUNT 235 10^3/uL (130-450); RED BLOOD COUNT 5.34 10^6/uL (4.20-5.40); RED CELL DISTRIBUTION WIDTH 13.7 % (12.0-15.0); WHITE BLOOD COUNT 5.6 x10^3/uL (4.8-10.8)
[2021-10-12 21:33] LABS: ESTIMATED AVERAGE GLUCOSE 177 mg/dL (70-100); HEMOGLOBIN A1c% 7.8 % (4.27-6.07)
[2021-10-12 21:37] LABS: ALBUMIN/GLOBULIN RATIO 1.1 (1.0-2.2); ALKALINE PHOSPHATASE 88 IU/L (42-121); ALT ALANINE AMINOTRANSFERASE 25 IU/L (10-60); AST ASPARTATE AMINOTRANSFERASE 21 IU/L (10-42); BILIRUBIN,TOTAL 0.8 mg/dL (0.2-1.0); BUN - BLOOD UREA NITROGEN 13 mg/dL (6-20); CALCIUM 9.3 mg/dL (8.5-10.3); CARBON DIOXIDE - CO2 35 mmol/L (21-32); CHLORIDE 94 mmol/L (101-111); CHOL/HDL RATIO 7.7 (<4.4); CHOLESTEROL 316 mg/dL; CREATININE 0.5 mg/dL (0.4-1.0); GFR - MDRD 126 (>89); GLUCOSE 153 mg/dL (70-100); HDL CHOLESTEROL 41 mg/dL; POTASSIUM 4.3 mmol/L (3.5-5.0); SODIUM 139 mmol/L (135-145); TOTAL PROTEIN 7.7 g/dL (6.7-8.2); TRIGLYCERIDES 487 mg/dL
[2021-10-12 21:40] LABS: CREATININE,URINE 138.8 mg/dL
[2021-10-12 21:44] LABS: THYROID STIMULATING HORMONE 1.06 uIU/mL (0.34-5.60)
[2021-10-12 22:00] LABS: LDL CHOLESTEROL,DIRECT 169 mg/dL; LDLD/HDL RATIO 4.1 (<4.4)
== END 2021-10-12 23:59 | disposition home or self-care (01) ==
LOC: LAB.WCP 13:44
PROVIDERS: ATTEND Internal Medicine
DX: E11.9 Type 2 diabetes mellitus without complications (principal); E78.5 Hyperlipidemia, unspecified
CPT/HCPCS: 36415; 80053; 80061; 82043; 82570; 83036; 83721; 84443; 85025

== ENCOUNTER 2022-01-14 13:51 | Outpatient (CLI) | payer MEDICARE, MEDICAID ==
[2022-01-14 18:05] LABS: ESTIMATED AVERAGE GLUCOSE 166 mg/dL (70-100); HEMOGLOBIN A1c% 7.4 % (4.27-6.07)
[2022-01-14 18:29] LABS: CREATININE,URINE 141.4 mg/dL; MICROALBUM/CREATININE RATIO,UR 14.9 ug/mg (<30.0); MICROALBUMIN,URINE 2.1 mg/dL (0-300.0)
[2022-01-14 18:30] LABS: ALBUMIN 3.9 g/dL (3.2-5.5); ALBUMIN/GLOBULIN RATIO 1.1 (1.0-2.2); ALKALINE PHOSPHATASE 68 IU/L (42-121); ALT ALANINE AMINOTRANSFERASE 15 IU/L (10-60); AST ASPARTATE AMINOTRANSFERASE 14 IU/L (10-42); BILIRUBIN,TOTAL 0.6 mg/dL (0.2-1.0); BUN - BLOOD UREA NITROGEN 13 mg/dL (6-20); CALCIUM 9.4 mg/dL (8.5-10.3); CARBON DIOXIDE - CO2 35 mmol/L (21-32); CHLORIDE 92 mmol/L (101-111); CHOL/HDL RATIO 4.7 (<4.4); CHOLESTEROL 184 mg/dL; CREATININE 0.6 mg/dL (0.4-1.0); GFR - MDRD 102 (>89); GLUCOSE 170 mg/dL (70-100); HDL CHOLESTEROL 39 mg/dL; LDL CHOLESTEROL,CALCULATED 80 mg/dL; LDL/HDL RATIO 2.1 (<4.4); POTASSIUM 4.6 mmol/L (3.5-5.0); SODIUM 137 mmol/L (135-145); TOTAL PROTEIN 7.5 g/dL (6.7-8.2); TRIGLYCERIDES 324 mg/dL; VLDL CHOLESTEROL 65 mg/dL
== END 2022-01-14 13:52 | disposition home or self-care (01) ==
LOC: LAB.N 13:51
PROVIDERS: ATTEND Internal Medicine
DX: E78.1 Pure hyperglyceridemia (principal); E11.9 Type 2 diabetes mellitus without complications
CPT/HCPCS: 36415; 80053; 80061; 82043; 82570; 83036; 83721

== ENCOUNTER 2022-05-25 15:31 | Outpatient (CLI) | payer MEDICARE, MEDICAID ==
--- NOTE | 2022-05-27 08:26 | Mammography Report ---
BILATERAL DIGITAL SCREENING MAMMOGRAM 3D/2D: 05/25/2022 CLINICAL: Routine screening. Comparison is made to exams dated: 12/31/2020 mammogram and 01/04/2016 mammogram - [facility]. The tissue of both breasts is predominantly fatty. There are benign calcifications in the right breast. There also are benign post operative findings i n the right breast. No significant masses, calcifications, or other findings are seen in either breast. There has been no significant interval change. IMPRESSION: BENIGN There is no mammographic evidence of malignancy. A 1 year screening mammogram is recommended. Based on the Tyrer Cuzick model (a risk assessment model) the patients lifetime risk is 8.6% and her 10 year risk is 3.5%. According to the ACR, ACS, and NCCN guidelines, an annual breast MRI exam dilcia g with mammogram is recommended if the patients lifetime risk is 20% or greater. This exam was interpreted at Station ID: [id number]. NOTE: For mammograms, a report in lay terms will be sent to the patient. Approximately 15% of breast malignancies will not be visualized mammographically. In the management of a palpable breast mass, a negative mammogram must not discourage biopsy of a clinically suspicious lesion. Electronically Signed By: Charisse ash/andre:05/26/2022 09:16:46 ACR BI-RADS Category 2: Benign Finding(s) 3342F PARENCHYMAL PATTERN: (F) - The breast(s) demonstrate(s) diffuse fatty replacement. BI-RADS CATEGORY: (2) - 2 RECOMMENDATION: (ANNUAL) - Recommend routine annual screening mammography. [id number] 1 year screening LATERALITY: (B)
== END 2022-05-25 15:32 | disposition home or self-care (01) ==
LOC: DI.N 15:31
PROVIDERS: ATTEND Internal Medicine
DX: Z12.31 Encounter for screening mammogram for malignant neoplasm of breast (principal)

== ENCOUNTER 2022-10-10 14:04 | Outpatient (CLI) | payer MEDICARE, MEDICAID ==
--- NOTE | 2022-10-10 22:01 | XRAY Report ---
PROCEDURE: Chest 2 View X-Ray INDICATIONS: COUGH TECHNIQUE: 2 views of the chest were acquired. COMPARISON: 03/05/2021 FINDINGS: Surgical changes and devices: None. Lungs and pleura: There is pulmonary vascular prominence consistent with bone edema. In addition, the re are increased bibasilar opacities including confluent opacities in the right lung base. Small bila teral pleural effusions are present. No pneumothorax. Mediastinum: Mediastinal contours are unchanged. Heart size is enlarged. Bones and chest wall: No suspicious bony abnormalities. Soft tissues appear unremarkable. IMPRESSION: 1. Bibasilar opacities with confluence in the right lung base suggestive of consolidation and pneumon ia. However, short-term follow-up is recommended following appropriate therapy to demonstrate resolut ion and exclude an underlying mass. 2. Pulmonary edema, pleural effusions, and cardiomegaly suggestive of congestive heart failure. Reviewed by: Job Levy MD on 10/10/2022 10:00 PM [facility] Approved by: Job Levy MD on 10/10/2022 10:00 PM [facility] Station ID: [id number]
== END 2022-10-10 23:59 | disposition home or self-care (01) ==
LOC: DI.N 14:04
PROVIDERS: ATTEND Physician Assistant
DX: R91.8 Other nonspecific abnormal finding of lung field (principal); J81.1 Chronic pulmonary edema; J90 Pleural effusion, not elsewhere classified; I51.7 Cardiomegaly

== ENCOUNTER 2022-10-10 14:51 | Outpatient (CLI) | payer MEDICARE, MEDICAID | END 2022-10-10 14:52 | disposition critical access hospital (66) | LOC: EMS 14:51 | DX: J18.9 Pneumonia, unspecified organism (principal) | CPT/HCPCS: A0425; A0429 ==

== ENCOUNTER 2022-10-10 15:13 | Emergency (ER) | payer MEDICARE, MEDICAID ==
[2022-10-10 16:22] LABS: BASOPHILS % (AUTO) 0.7 %; EOSINOPHILS # (AUTO) 0.3 10^3/uL (0.0-0.7); EOSINOPHILS % (AUTO) 4.3 %; HCT - HEMATOCRIT 54.2 % (37.0-47.0); HGB - HEMOGLOBIN 15.9 g/dL (12.0-16.0); LYMPHOCYTES # (AUTO) 0.9 10^3/uL (1.5-3.5); MEAN CORPUSCULAR HEMOGLOBIN 27.5 pg (27.0-31.0); MEAN CORPUSCULAR HGB CONC 29.3 g/dL (32.0-36.0); MEAN CORPUSCULAR VOLUME 93.6 fL (81.0-99.0); MEAN PLATELET VOLUME 9.3 fL (7.9-10.8); MONOCYTES # (AUTO) 0.4 10^3/uL (0.0-1.0); MONOCYTES % (AUTO) 6.3 %; NEUTROPHILS # (AUTO) 4.2 10^3/uL (1.5-6.6); NEUTROPHILS % (AUTO) 72.3 %; NRBC ABSOLUTE COUNT (AUTO) 0.07 x10^3/uL; NUCLEATED RED BLOOD CELLS AUTO 1.2 /100WBC; PLT - PLATELET COUNT 195 10^3/uL (130-450); RED BLOOD COUNT 5.79 10^6/uL (4.20-5.40); RED CELL DISTRIBUTION WIDTH 19.8 % (12.0-15.0); WHITE BLOOD COUNT 5.8 x10^3/uL (4.8-10.8)
[2022-10-10] MEDS ORDERED: predniSONE 20 MG TABLET PO STA (16:26)
[2022-10-10] MEDS ORDERED: IPRATROPIUM/ALBUTEROL 3 ML NEB INH STA (16:26)
--- NOTE | 2022-10-10 16:38 | ED Physician Documentation ---
History of Present Illness - Stated complaint Stated Complaint: SOA - Chief complaint Chief Complaint: Resp - History obtained from History obtained from: Patient, EMS - History of Present Illness Pain level max: 0 Pain level now: 0 - Additonal information Additional information: Patient is a 62-year-old female with a history of oxygen dependent COPD. She is brought in by EMS today. She states that she has had cough and congestion for about the past 10 days. She states she is actually feeling better today than she was last week. She went to the urgent care clinic to be checked and states that she had an x-ray there was told she had possible pneumonia and sent here. Patient states that she uses inhalers at home but recently did obtain a nebulizer machine and feels that that works much better. She denies any fevers or chills. The cough is mostly dry, occasionally will cough up what sounds like mucus plugging. She states that she is actually feeling quite a bit better than last week. Patient is normally on 2 to 3 L of home O2 saturating between 88 and 92%. She uses O2 24/ Review of Systems Constitutional: denies: Fever, Chills Nose: reports: Rhinorrhea / runny nose, Congestion Respiratory: reports: Cough. denies: Dyspnea, Wheezing GI: denies: Abdominal Pain, Nausea, Vomiting, Diarrhea Skin: denies: Rash PD PAST MEDICAL HISTORY - Past Medical History Past Medical History: Yes Cardiovascular: Hypertension, High cholesterol Respiratory: Asthma Endocrine/Autoimmune: Type 2 diabetes GI: GERD : Incontinence HEENT: Other Psych: Depression - Past Surgical History Past Surgical History: Yes General: Cholecystectomy /[employer]: section - Present Medications Home Medications: Ambulatory Orders Medication Instructions Recorded Confirmed Albuterol [Ventolin Hfa] 2 puffs INH Q4H PRN 06/28/13 10/10/22 Amlodipine Besylate 10 mg PO DAILY 06/28/13 10/10/22 Fluticasone/Salmeterol 500/50 1 puffs INH BID 06/28/13 10/10/22 [Advair 500 Mcg/50 Mcg] Furosemide [Lasix] 20 mg PO DAILY 06/28/13 10/10/22 Ipratropium/Albuterol [Duoneb] 3 ml INH Q6H 06/28/13 10/10/22 Losartan [Cozaar] 100 mg PO DAILY 06/28/13 10/10/22 Montelukast Sodium [Singulair] 10 mg PO DAILY 06/28/13 10/10/22 Fluoxetine HCl [Prozac] 20 mg PO BID 01/03/15 10/10/22 Aspirin [Aspir-Low] 81 mg PO DAILY 01/05/15 10/10/22 Albuterol Sulfate 5 mg IH Q4HR PRN 10/10/22 10/10/22 Dulaglutide [Trulicity] 3 mg SQ .Q7DAY 10/10/22 10/10/22 Erythromycin Base [Erythromycin 1 applic OP TID 10/10/22 10/10/22 Ophthalmic Ointment] Fexofenadine [Saranya] 60 mg PO DAILY 10/10/22 10/10/22 Metoprolol Succinate [Kapspargo 25 mg PO DAILY 10/10/22 10/10/22 Sprinkle] Mirtazapine [Remeron] 7.5 mg PO DAILY 10/10/22 10/10/22 Rosuvastatin Calcium [Crestor] 40 mg PO DAILY 10/10/22 10/10/22 Ubidecarenone [Co Q-10] 100 mg PO DAILY 10/10/22 10/10/22 predniSONE [Deltasone] 10 mg PO [id number] #42 tab 10/10/22 - Allergies Allergies/Adverse Reactions: Allergies Allergy/AdvReac Type Severity Reaction Status Date / Time diphenhydramine HCl * AdvReac Unknown Hallucinati Verified 10/10/22 15:18 [From Benadryl] ons lisinopril AdvReac Unknown Rash Verified 10/10/22 15:18 - Social History Does the pt smoke?: No Smoking Status: Never smoker Does the pt drink ETOH?: No Does the pt have substance abuse?: No - Immunizations Immunizations are current?: Yes - POLST Patient has POLST: No PD ED PE NORMAL - Vitals Vital signs reviewed: Yes - General General: Alert and oriented X 3, No acute distress, Well developed/nourished - HEENT HEENT: Moist mucous membranes, Pharynx benign - Neck Neck: Supple, no meningeal sign - Cardiac Cardiac: RRR, Strong equal pulses - Respiratory Respiratory: No respiratory distress, Clear bilaterally - Abdomen Abdomen: Soft, Non tender, Non distended - Derm Derm: Warm and dry - Extremities Extremities: No edema, No calf tenderness / cord - Neuro Neuro: Alert and oriented X 3 - Psych Psych: Normal mood, Normal affect Results - Vitals Vitals: Vital Signs - 24 hr 10/10/22 10/10/22 10/10/22 15:18 16:44 17:00 Temperature 36.6 C Heart Rate 76 68 Respiratory 18 20 Rate Blood Pressure 124/66 O2 Saturation 90 L 84 L If not protocol 2 : Oxygen Flow, liters/minute 10/10/22 10/10/22 17:22 18:13 Temperature 36.8 C Heart Rate 69 78 Respiratory 20 18 Rate Blood Pressure 127/66 119/89 H O2 Saturation 94 94 If not protocol 4 2 : Oxygen Flow, liters/minute Oxygen O2 Source [With Activity] Nasal cannula O2 Source Nasal cannula Oxygen Flow Rate 2 - Labs Labs: Laboratory Tests 10/10/22 10/10/22 10/10/22 16:13 16:13 16:13 WBC 5.8 RBC 5.79 H Hgb 15.9 Hct 54.2 H MCV 93.6 MCH 27.5 MCHC 29.3 L RDW 19.8 H Plt Count 195 MPV 9.3 Neut # (Auto) 4.2 Lymph # (Auto) 0.9 L [place] # (Auto) 0.4 Eos # (Auto) 0.3 Baso # (Auto) 0.0 Absolute Nucleated RBC 0.07 Nucleated RBC % 1.2 Sodium 140 Potassium 4.4 Chloride 89 L Carbon Dioxide 42 H* Anion Gap 9.0 BUN 9 Creatinine 0.7 Estimated GFR (MDRD) 85 L Glucose 142 H Calcium 9.2 Total Bilirubin 1.0 AST 17 ALT 16 Alkaline Phosphatase 79 Total Protein 8.0 Albumin 3.7 Globulin 4.3 H Albumin/Globulin Ratio 0.9 L Nasal Adenovirus (PCR) NOT DETECTED Nasal B. parapertussis DNA (PCR) NOT DETECTED Nasal Coronavir 229E PCR NOT DETECTED Nasal Coronavir HKU1 PCR NOT DETECTED Nasal Coronavir NL63 PCR NOT DETECTED Nasal Coronavir OC43 PCR NOT DETECTED Nasal Enterovir/Rhinovir PCR NOT DETECTED Nasal Influenza B PCR NOT DETECTED Nasal Influenza A PCR NOT DETECTED Nasal Parainfluen 1 PCR NOT DETECTED Nasal Parainfluen 2 PCR NOT DETECTED Nasal Parainfluen 3 PCR NOT DETECTED Nasal Parainfluen 4 PCR NOT DETECTED Nasal RSV (PCR) NOT DETECTED Nasal B.pertussis DNA PCR NOT DETECTED Nasal C.pneumoniae (PCR) NOT DETECTED Allen Human Metapneumo PCR NOT DETECTED Nasal M.pneumoniae (PCR) NOT DETECTED Nasal SARS-CoV-2 (PCR) NOT DETECTED PD MEDICAL DECISION MAKING - ED course Complexity details: reviewed results, re-evaluated patient, considered differential, d/w patient ED course: Patient is a 62-year-old female who presents to the emergency department with cough and congestion. She states that she had fevers and chills last week, none this week. She states she actually feels much improved versus last week. She had an x-ray earlier today at the walk-in clinic. This has not been read by radiology yet. Appears to be mainly pulmonary vascular congestion, likely CHF. Also appears to have viral inflammation. I do not see any distinct pneumonia at this time. She is very well-appearing, nontoxic. Stable on her home O2. We will place her on a prednisone taper for home and continue her current medi cations. Patient counseled regarding signs and symptoms for which I believe and urgent re-evaluation would be necessary. Patient with good understanding of and agreement to plan and is comfortable going home at this time This document was made in part using voice recognition software. While efforts are made to proofread this document, sound alike and grammatical errors may occur. Departure - Departure Disposition: 01 Home, Self Care Clinical Impression: COPD exacerbation Condition: Good Instructions: ED COPD Flare Follow-Up: Mahin Elliott MD [Primary Care Provider] - Within 1 week Prescriptions: predniSONE [Deltasone] 10 mg PO [id number] #42 tab Comments: Your testing does not show any acute abnormalities today. You have improved with steroids and nebulizer treatment. You are stable on your current oxygen. Please follow-up with your doctor for further care. Return if you worsen. Your prescriptions were sent to [facility] in [place]. Discharge Date/Time: 10/10/22 18:20
[2022-10-10 16:48] LABS: ALBUMIN 3.7 g/dL (3.2-5.5); ALBUMIN/GLOBULIN RATIO 0.9 (1.0-2.2); CALCIUM 9.2 mg/dL (8.5-10.3); CREATININE 0.7 mg/dL (0.4-1.0); POTASSIUM 4.4 mmol/L (3.5-5.0)
[2022-10-10 17:16] LABS: CORONAVIRUS 229E-RESP PCR NOT DETECTED; CORONAVIRUS HKU1-RESP PCR NOT DETECTED; CORONAVIRUS NL63-RESP PCR NOT DETECTED; CORONAVIRUS OC43-RESP PCR NOT DETECTED; HUMAN METAPNEUMOVIRUS NOT DETECTED; INFLUENZA A- RESP PCR PANEL NOT DETECTED; INFLUENZA B - RESP PCR PANEL NOT DETECTED; PARAINFLUENZA VIRUS 1 NOT DETECTED; RHINOVIRUS/ENTEROVIRUS NOT DETECTED; SARS-CoV-2 -RESP PCR PANEL NOT DETECTED
[2022-10-10 17:17] LABS: B. PARAPERTUSSIS- RESP PCR PAN NOT DETECTED; B. PERTUSSIS- RESP PCR PANEL NOT DETECTED; C. PNEUMONIAE- RESP PCR PANEL NOT DETECTED; M. PNEUMONIAE- RESP PCR PANEL NOT DETECTED; PARAINFLUENZA VIRUS 2 NOT DETECTED; PARAINFLUENZA VIRUS 3 NOT DETECTED; PARAINFLUENZA VIRUS 4 NOT DETECTED; RSV- RESP PCR PANEL NOT DETECTED
[2022-10-10 18:14] VITALS: BP 119/89
== END 2022-10-10 18:20 | disposition home or self-care (01) ==
LOC: EDUNIT# → ED 15:13
DX: J44.1 Chronic obstructive pulmonary disease with (acute) exacerbation (principal); Z99.81 Dependence on supplemental oxygen; I10 Essential (primary) hypertension; E11.9 Type 2 diabetes mellitus without complications; Z79.85 Long-term (current) use of injectable non-insulin antidiabetic drugs; R91.8 Other nonspecific abnormal finding of lung field; J81.1 Chronic pulmonary edema; J90 Pleural effusion, not elsewhere classified; I51.7 Cardiomegaly
CPT/HCPCS: 36415; 71046; 80053; 85025; 87633; 94640; 94664; 99283; 99284; J7512

== ENCOUNTER 2022-10-17 19:04 | Outpatient (CLI) | payer MEDICARE, MEDICAID | END 2022-10-17 23:59 | disposition left against medical advice (07) | LOC: EMS 19:04 | DX: R53.1 Weakness (principal); R09.02 Hypoxemia; E11.65 Type 2 diabetes mellitus with hyperglycemia ==

== ENCOUNTER 2022-11-07 14:35 | Outpatient (CLI) | payer MEDICARE, MEDICAID ==
[2022-11-07 15:04] LABS: CALCIUM 9.6 mg/dL (8.5-10.3); CREATININE 0.6 mg/dL (0.4-1.0); POTASSIUM 4.9 mmol/L (3.5-5.0)
--- NOTE | 2022-11-07 17:16 | XRAY Report ---
PROCEDURE: Chest 2 View X-Ray INDICATIONS: COUGH,PNEUMONIA TECHNIQUE: 2 views of the chest were acquired. COMPARISON: 10/10/2022 FINDINGS: Surgical changes and devices: None. Lungs and pleura: Interval improvement of diffuse interstitial prominence. Previously seen bilateral pleural effusions have decreased in size. Probable trace bilateral pleural effusions. Mild streaky le ft basilar airspace opacities also appear improved. Persistent focal consolidation of the right lower lobe. Mediastinum: Mediastinal contours are normal. Heart size is normal. Bones and chest wall: No suspicious bony abnormalities. Soft tissues appear unremarkable. IMPRESSION: 1. Right lower lobe consolidation likely representing pneumonia. Interval improvement in streaky left basilar opacities consistent with resolving pneumonia and/or decrease atelectasis. Interval decrease in size of bilateral pleural effusions. 2. Given time interval between the previous chest radiograph and today's evaluation, imaging findings may lag clinical symptoms. Recommend short interval follow-up chest radiograph in 4-6 weeks to docum ent continued improvement/resolution. If follow-up examination demonstrates persistent findings and p atient is asymptomatic, further evaluation with CT chest can be considered at that time. Reviewed by: Sy Her MD on 11/07/2022 5:15 PM PST Approved by: Sy Her MD on 11/07/2022 5:15 PM PST Station ID: [id number]
[2022-11-09 12:50] LABS: ESTIMATED AVERAGE GLUCOSE 203 mg/dL (70-100); HEMOGLOBIN A1c% 8.7 % (4.27-6.07)
== END 2022-11-07 14:36 | disposition home or self-care (01) ==
LOC: DI 14:35
PROVIDERS: ATTEND Physician Assistant
DX: J18.9 Pneumonia, unspecified organism (principal); E11.9 Type 2 diabetes mellitus without complications; J90 Pleural effusion, not elsewhere classified
CPT/HCPCS: 36415; 80048; 83036

== ENCOUNTER 2023-02-06 10:30 | Outpatient (CLI) | payer MEDICARE, MEDICAID ==
[2023-02-06 12:09] VITALS: BP 128/70
--- NOTE | 2023-02-06 12:09 | SLEEP CARE CONSULTATION ---
Information from patient questionnaire entered by Tiffany Cline. I have reviewed and concur with the information entered by Tiffany Cline. This document represents the service I personally performed and the decisions made by me, Vielka Dugan MD, [facility]. History of Present Illness Service Date and Time: 02/06/2023 1030 Reason for Visit: New patient Chief Complaint: reports: Insomnia, Unrefreshed sleep, Other (UPDATE SUPPLIES) Date of Onset: 2007 Usual bedtime: DONT HAVE ONE ABOUT 4AM Time it takes to fall asleep: HRS Snores at night: Yes Observed to quit breathing while asleep: Yes Sleeps alone due to snoring: No Number of times waking at night: A FEW Reasons for waking at night: reports: Other (MASK LEAK) Toss, Turn, or Twitch while sleeping: No Recalls having dreams: No Usually gets out of bed at: 6AM Feels refreshed in the morning: No Morning headache: Yes Sleepy or fatigued during the day: Yes Ever fallen asleep while driving: No Takes day naps: No Dreams during day naps: No Prior sleep studies: Yes (YANELI) Additional HPI information: I had the pleasure of seeing Ms. Hunter today regarding obstructive sleep apnea-hypopnea. As you know, she is a 62-year-old lady who was diagnosed with the sleep-disordered breathing here in 2005. The AHI was 37.5 and louie oxygen saturation, 51%. In 2018, she had another in-laboratory polysomnography which showed mild obstructive sleep apnea-hypopnea with an AHI of 8.1 but her average oxygen saturation during sleep was 87%. She is using a BiPAP set at 23/15 cmH2O . She continues to use it every night and all night. The compliance data show usage in 90 out of the past 90 nights, averaging 13 hours a night. The residual AHI is 5.5 (mostly central apneas) and average air leak is 0 L/minute. She wears a full face mask. [facility] but she gets his supplies from [employer]. She finds the treatment very beneficial. She bleeds oxygen through her BiPAP at night. [facility] 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 Patient is Single and lives in [place]. Have you smoked in the past 12 months: No Years of smokin Quit date: 1991 Alcohol use: No Caffeine use: Yes Caffeine amount and frequency: 20oz daily Family History Family history of sleep disordered breathing: Yes Family Hx Sleep Apnea: Mother: Snoring, Sleep apnea - Untreated, Father: Snoring, Sleep apnea - Untreated Allergies and Home Medications Known drug allergies: Yes (benadrly, lisinopril) Drug allergies reviewed: Yes Home medication list reviewed: Yes Allergy and home medication list: Allergies diphenhydramine HCl * [From Benadryl] Adverse Reaction (Unknown, Verified 10/10/22 15:18) Hallucinations lisinopril Adverse Reaction (Unknown, Verified 10/10/22 15:18) Rash Review of Systems Weight loss over past 5 years: 16 Cardiovascular: reports: high blood pressure, other (murmor) Respiratory: reports: shortness of breath, wheeze Gastrointestinal: reports: heartburn, difficulty swallowing Urinary: reports: incontinence Neurological: denies: headaches, seizure, head trauma, disorientation, speech dysfunction, gait or balance problems, fainting or unconsciousness, other Psychiatric: reports: depression Ear/Nose/Throat: reports: nasal congestion, sinus problems Endocrine: denies: thyroid disease, history of goiter, sluggishness, too hot or cold, excessive thirst, increased appetite, increased urination, unexplained weakness, other Musculoskeletal: reports: joint pain, neck pain, back pain, muscle pain or cramping Immunologic: reports: sneezing Physical Exam Vital signs obtained and entered by: TIFFANY Wetzel MA Blood Pressure: 128/70 (left arm) Cuff size: long Heart Rate: 63 O2 Saturation: 97 (on oxygen) Height: 5 ft 2 in Weight: 210 lb 12.8 oz Body Mass Index: 38.5 BMI Classification: Obese Neck circumference: 19 Mood/affect: Physical exam is unchanged from her previous visits. Impression and Plan IMPRESSION: 1. Obstructive Sleep Apnea-Hypopnea Syndrome, mild, as previously diagnosed. The patient has good BiPAP compliance. The current pressure setting appears slightly ineffective and not too comfortable. It may be set too high given the high central apnea index. Because her BiPAP is now older than the useful life of 5 years, I will order the patient a new one and set it at 18/12 cmH2O. Plan: 1. Prescription made for a new BiPAP, heated humidifier, and related supplies. 2. Raise the heated humidifier setting as needed to not become dry. 3. Try to lose weight. 4. Return for follow up after one month of using the BiPAP. Prescriptions: BiPAP Follow up with Sleep Care in: 1-2 months Visit Type: In Office Time Spent with Patient (minutes): 15 Provider Statement: I spent 100% of the Face to Face Visit with the patient with greater than 50% spent counseling the patient and coordination of care.
== END 2023-02-06 10:31 | disposition home or self-care (01) ==
LOC: SC 10:30
PROVIDERS: ATTEND Internal Medicine Pulmonary Disease
DX: G47.33 Obstructive sleep apnea (adult) (pediatric) (principal); E66.9 Obesity, unspecified; Z68.38 Body mass index [BMI] 38.0-38.9, adult; Z87.891 Personal history of nicotine dependence
CPT/HCPCS: 99202; G0463; 99212

== ENCOUNTER 2023-02-07 08:00 | Outpatient (CLI) | payer MEDICARE, MEDICAID ==
--- NOTE | 2023-02-07 17:09 | XRAY Report ---
PROCEDURE: Shoulder 3 View RT INDICATIONS: RIGHT SHOULDER PAIN TECHNIQUE: 4 views of the shoulder were acquired. COMPARISON: None. FINDINGS: Bones: No fractures or dislocations. No suspicious bony lesions. Visualized ribs appear intact. T here is mild joint space narrowing and osteophytosis at the acromioclavicular joint. Soft tissues: No suspicious soft tissue calcifications. IMPRESSION: Mild degenerative change at the acromioclavicular joint. Reviewed by: Montse Schmitz MD on 02/07/2023 5:08 PM PDT Approved by: Montse Schmitz MD on 02/07/2023 5:08 PM PDT Station ID: [id number]
== END 2023-02-07 23:59 | disposition home or self-care (01) ==
LOC: DI.WOS 08:00
PROVIDERS: ATTEND Physician Assistant Surgical
DX: M75.40 Impingement syndrome of unspecified shoulder (principal); M19.011 Primary osteoarthritis, right shoulder

== ENCOUNTER 2023-10-15 20:01 | Emergency (ER) | payer MEDICARE, MEDICAID ==
[2023-10-15] MEDS ORDERED: predniSONE 20 MG TABLET PO STA (20:44)
--- NOTE | 2023-10-15 20:44 | ED Physician Documentation ---
History of Present Illness - Stated complaint Stated Complaint: SOA/COPD - Chief complaint Chief Complaint: Resp - History obtained from History obtained from: Patient - Additonal information Additional information: The patient comes to the emergency department chief complaint of gradually worsening shortness of breath over the last several weeks and a dry cough for the last 4 days. The patient has a history of COPD and normally uses 2 L of oxygen at home. She does this [id number] and states she is a CO2 retainer so she does not put her oxygen above 2 L even though her home O2 sat is usually around 85 with the oxygen.The patient states she has not had any fevers. She has been distracted and busy taking care of her brother who has been ill and recently came to live with her. She just feels she has not been taking care of her health. She states that she was told once that she had congestive heart failure but then was transferred to [place], where she was told she did not actually have congestive heart failure. She states that she did have a little bit of swelling in her feet yesterday from the Thanksgiving food but that this has resolved today. She states she feels a little bit tight across her upper abdomen but otherwise no chest tightness or pain. No nausea or vomiting. The patient states that the last time she felt like this, she had pneumonia. No other complaints at this time. 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 - Present Medications Home Medications: Ambulatory Orders Medication Instructions Recorded Confirmed Albuterol [Ventolin Hfa] 2 puffs INH Q4H PRN 06/28/13 02/06/23 Amlodipine Besylate 10 mg PO DAILY 06/28/13 02/06/23 Fluticasone/Salmeterol 500/50 1 puffs INH BID 06/28/13 02/06/23 [Advair 500 Mcg/50 Mcg] Furosemide [Lasix] 20 mg PO DAILY 06/28/13 02/06/23 Ipratropium/Albuterol [Duoneb] 3 ml INH Q6H 06/28/13 02/06/23 Losartan [Cozaar] 100 mg PO DAILY 06/28/13 02/06/23 Montelukast Sodium [Singulair] 10 mg PO DAILY 06/28/13 02/06/23 Fluoxetine HCl [Prozac] 20 mg PO BID 01/03/15 02/06/23 Aspirin [Aspir-Low] 81 mg PO DAILY 01/05/15 02/06/23 Albuterol Sulfate 5 mg IH Q4HR PRN 10/10/22 02/06/23 Dulaglutide [Trulicity] 3 mg SQ .Q7DAY 10/10/22 02/06/23 Erythromycin Base [Erythromycin 1 applic OP TID 10/10/22 02/06/23 Ophthalmic Ointment] Fexofenadine [Saranya] 60 mg PO DAILY 10/10/22 02/06/23 Metoprolol Succinate [Kapspargo 25 mg PO DAILY 10/10/22 02/06/23 Sprinkle] Mirtazapine [Remeron] 7.5 mg PO DAILY 10/10/22 02/06/23 Rosuvastatin Calcium [Crestor] 40 mg PO DAILY 10/10/22 02/06/23 Ubidecarenone [Co Q-10] 100 mg PO DAILY 10/10/22 02/06/23 predniSONE [Deltasone] 10 mg PO [id number] #42 tab 10/10/22 02/06/23 Azithromycin [Zithromax] 0 mg PO DAILY #6 tablet 10/15/23 predniSONE [Deltasone] 10 mg PO [id number] #42 tab 10/15/23 - Allergies Allergies/Adverse Reactions: Allergies Allergy/AdvReac Type Severity Reaction Status Date / Time diphenhydramine HCl * AdvReac Unknown Hallucinati Verified 10/15/23 20:26 [From Benadryl] ons lisinopril AdvReac Unknown Rash Verified 10/15/23 20:26 - Social History Does the pt smoke?: No Smoking Status: Never smoker Does the pt drink ETOH?: No Does the pt have substance abuse?: No - Immunizations Immunizations are current?: Yes - POLST Patient has POLST: No PD ED PE NORMAL - Vitals Vital signs reviewed: Yes - General General: Alert and oriented X 3, No acute distress, Well developed/nourished - HEENT HEENT: Atraumatic, PERRL, EOMI, Moist mucous membranes - Neck Neck: Supple, no meningeal sign - Cardiac Cardiac: RRR, No murmur - Respiratory Respiratory: No respiratory distress, Clear bilaterally, Other (The patient talks easily in full sentences, but is noted to have moderately decreased air movement bilaterally. However, lungs are clear.) - Abdomen Abdomen: Soft, Non tender, Non distended - Derm Derm: Normal color, Warm and dry, No rash - Extremities Extremities: No deformity, No edema - Neuro Neuro: Alert and oriented X 3 - Psych Psych: Normal mood, Normal affect Results - Vitals Vitals: Vital Signs - 24 hr 10/15/23 10/15/23 10/15/23 20:15 20:51 21:21 Temperature 36.9 C Heart Rate 79 72 71 Respiratory 24 20 22 Rate Blood Pressure 154/75 H 149/68 H 149/76 H O2 Saturation 83 L 90 L 86 L If not protocol 2 2 : Oxygen Flow, liters/minute 10/15/23 10/15/23 10/15/23 21:51 22:21 22:30 Temperature Heart Rate 71 71 71 Respiratory 20 20 20 Rate Blood Pressure 171/93 H 162/84 H 162/84 H O2 Saturation 90 L 89 L 89 L If not protocol 2 2 2 : Oxygen Flow, liters/minute 10/15/23 23:00 Temperature Heart Rate 74 Respiratory 22 Rate Blood Pressure 164/81 H O2 Saturation 89 L If not protocol 2 : Oxygen Flow, liters/minute Oxygen O2 Source [With Activity] Nasal cannula O2 Source Nasal cannula Oxygen Flow Rate 2 - EKG (time done) 2119 EKG releavant findings:: EKG personally interpreted by author of this note. Relevant findings are: Rate: Rate (enter#) (69) Rhythm: NSR [place]: Normal Intervals: Normal HI QRS: Normal Ischemia: Normal ST segments Compare to prior EKG: Old EKG unavailable Computer interpretation: Agree with computer - Labs Labs: Laboratory Tests 10/15/23 10/15/23 10/15/23 20:50 20:50 20:50 WBC 8.5 RBC 5.43 H Hgb 14.9 Hct 51.9 H MCV 95.6 MCH 27.4 MCHC 28.7 L RDW 16.3 H Plt Count 306 MPV 10.3 Neut # (Auto) 6.6 Lymph # (Auto) 1.2 L Lares # (Auto) 0.4 Eos # (Auto) 0.2 Baso # (Auto) 0.1 Absolute Nucleated RBC 0.10 Nucleated RBC % 1.2 Sodium 136 Potassium 4.6 H Chloride 91 L Carbon Dioxide 41 H* Anion Gap 4.0 L BUN 10 Creatinine 0.5 L Estimated GFR (MDRD) 125 Glucose 174 H Calcium 9.5 Total Bilirubin 0.7 AST 11 ALT 8 L Alkaline Phosphatase 79 B-Natriuretic Peptide 302 H Total Protein 7.4 Albumin 3.9 Globulin 3.5 Albumin/Globulin Ratio 1.1 Lipase 13 Nasal Adenovirus (PCR) Nasal B. parapertussis DNA (PCR) Nasal Coronavir 229E PCR Nasal Coronavir HKU1 PCR Nasal Coronavir NL63 PCR Nasal Coronavir OC43 PCR Nasal Enterovir/Rhinovir PCR Nasal Influenza B PCR Nasal Influenza A PCR Nasal Parainfluen 1 PCR Nasal Parainfluen 2 PCR Nasal Parainfluen 3 PCR Nasal Parainfluen 4 PCR Nasal RSV (PCR) Nasal B.pertussis DNA PCR Nasal C.pneumoniae (PCR) Allen Human Metapneumo PCR Nasal M.pneumoniae (PCR) Nasal SARS-CoV-2 (PCR) 10/15/23 21:25 WBC RBC Hgb Hct MCV MCH MCHC RDW Plt Count MPV Neut # (Auto) Lymph # (Auto) Lares # (Auto) Eos # (Auto) Baso # (Auto) Absolute Nucleated RBC Nucleated RBC % Sodium Potassium Chloride Carbon Dioxide Anion Gap BUN Creatinine Estimated GFR (MDRD) Glucose Calcium Total Bilirubin AST ALT Alkaline Phosphatase B-Natriuretic Peptide Total Protein Albumin Globulin Albumin/Globulin Ratio Lipase Nasal Adenovirus (PCR) NOT DETECTED Nasal B. parapertussis DNA (PCR) NOT DETECTED Nasal Coronavir 229E PCR NOT DETECTED Nasal Coronavir HKU1 PCR NOT DETECTED Nasal Coronavir NL63 PCR NOT DETECTED Nasal Coronavir OC43 PCR NOT DETECTED Nasal Enterovir/Rhinovir PCR NOT DETECTED Nasal Influenza B PCR NOT DETECTED Nasal Influenza A PCR NOT DETECTED Nasal Parainfluen 1 PCR NOT DETECTED Nasal Parainfluen 2 PCR NOT DETECTED Nasal Parainfluen 3 PCR NOT DETECTED Nasal Parainfluen 4 PCR NOT DETECTED Nasal RSV (PCR) NOT DETECTED Nasal B.pertussis DNA PCR NOT DETECTED Nasal C.pneumoniae (PCR) NOT DETECTED Allen Human Metapneumo PCR NOT DETECTED Nasal M.pneumoniae (PCR) NOT DETECTED Nasal SARS-CoV-2 (PCR) NOT DETECTED - Rads (name of study) Chest x-ray Relevant Findings:: Final report received, See rad report (Bilateral hazy o pacities, Concerning for pneumonia) PD Medical Decision Making - ED course Complexity details: reviewed results, re-evaluated patient, considered differential, d/w patient ED course: The patient was worked up with EKG, chest x-ray, respiratory PCR panel, and laboratory studies including a BNP. She had stated that she had three 20 ounce bottles of water today plus half of a bottle of Liquid IV, and I felt she was unlikely to be significantly dehydrated. The patient's workup was unremarkable other than x-ray showing some bilateral basilar patchiness suspicious for pneumonia. Her white blood cell count was normal and respiratory PCR panel was also normal. The patient was started on antibiotics. Her oxygen saturation was in the upper 80s to low 90s on her usual level of home O2 and this is actually very good for her. The patient was not in any respiratory distress whatsoever and was speaking in full sentences without difficulty and I felt she was stable for discharge home. She had received Rocephin and Zithromax here in the emergency department and I am sent prescription for a steroid and for Zithromax. We have discussed the usual indications for return. Departure - Departure Disposition: 01 Home, Self Care Clinical Impression: Moderate COPD (chronic obstructive pulmonary disease) Pneumonia Qualifiers: Pneumonia type: due to unspecified organism Laterality: bilateral Lung location: lower lobe of lung Qualified Code(s): J18.9 - Pneumonia, unspecified organism Condition: Stable Instructions: ED COPD Flare, ED Pneumonia Adult Prescriptions: predniSONE [Deltasone] 10 mg PO [id number] #42 tab Azithromycin [Zithromax] 0 mg PO DAILY #6 tablet Comments: Your labs overall look fairly good. Your white blood cell count is normal and you have no fever here. Your oxygen levels when awake have been in the upper 80s to low 90s on your regular home oxygen levels. Your chest x-ray did show some pneumonia in the bottoms of your lungs, and you have been started on antibiotics for this. You will need to take antibiotics at home, as well. A prescription for the remainder of your antibiotics, as well as for a steroid, have been electronically transmitted to the [facility] pharmacy in [place], your pharmacy of choice on record. Your lungs were clear on examination here in the emergency department, and you have just had a breathing treatment, but you shou ld definitely continue to take regular breathing treatments at home until you are feeling better. If you feel as though you are worsening despite the antibiotics, please do not hesitate to return to the emergency department. Otherwise, please follow-up with your primary doctor. Forms: PCP List Discharge Date/Time: 10/15/23 23:13
[2023-10-15 20:55] LABS: BASOPHILS # (AUTO) 0.1 10^3/uL (0.0-0.1); BASOPHILS % (AUTO) 0.7 %; EOSINOPHILS # (AUTO) 0.2 10^3/uL (0.0-0.7); EOSINOPHILS % (AUTO) 2.6 %; HCT - HEMATOCRIT 51.9 % (37.0-47.0); HGB - HEMOGLOBIN 14.9 g/dL (12.0-16.0); LYMPHOCYTES # (AUTO) 1.2 10^3/uL (1.5-3.5); LYMPHOCYTES % (AUTO) 13.9 %; MEAN CORPUSCULAR HEMOGLOBIN 27.4 pg (27.0-31.0); MEAN CORPUSCULAR HGB CONC 28.7 g/dL (32.0-36.0); MEAN CORPUSCULAR VOLUME 95.6 fL (81.0-99.0); MEAN PLATELET VOLUME 10.3 fL (7.9-10.8); MONOCYTES # (AUTO) 0.4 10^3/uL (0.0-1.0); MONOCYTES % (AUTO) 4.3 %; NEUTROPHILS # (AUTO) 6.6 10^3/uL (1.5-6.6); NEUTROPHILS % (AUTO) 77.4 %; NUCLEATED RED BLOOD CELLS AUTO 1.2 /100WBC; PLT - PLATELET COUNT 306 10^3/uL (130-450); RED BLOOD COUNT 5.43 10^6/uL (4.20-5.40); RED CELL DISTRIBUTION WIDTH 16.3 % (12.0-15.0); WHITE BLOOD COUNT 8.5 x10^3/uL (4.8-10.8)
--- NOTE | 2023-10-15 21:05 | XRAY Report ---
PROCEDURE: Chest 1 View X-Ray INDICATIONS: sob TECHNIQUE: One view of the chest was acquired. COMPARISON: Right shoulder radiographs 02/07/2023. CXR 11/07/2022. CT pulmonary angiogram 12/25/2017. FINDINGS: Surgical changes and devices: None. Lungs and pleura: No significant pleural effusion. No pneumothorax. Bilateral patchy airspace opacit y. Mediastinum: Mediastinal contours appear similar. Fat-containing right Bochdalek hernia seen on prio r CT from 2018. Heart size is within normal limits. Bones and chest wall: No suspicious bony lesions. Overlying soft tissues appear unremarkable. IMPRESSION: Bilateral patchy airspace opacity suspected. This is most concerning for pneumonia. Reviewed by: Rocco Arteaga MD on 10/15/2023 9:04 PM [facility] Approved by: Rocco Arteaga MD on 10/15/2023 9:04 PM [facility] Station ID: [id number]
[2023-10-15 21:13] LABS: ALBUMIN 3.9 g/dL (3.2-5.5)
[2023-10-15] MEDS ORDERED: AZITHROMYCIN 250 MG TABLET PO STA (21:19)
[2023-10-15] MEDS ORDERED: cefTRIAXone 2 GM VIAL IM STA (21:19)
[2023-10-15 21:32] LABS: ALBUMIN/GLOBULIN RATIO 1.1 (1.0-2.2); BILIRUBIN,TOTAL 0.7 mg/dL (0.2-1.0); CALCIUM 9.5 mg/dL (8.5-10.3); CREATININE 0.5 mg/dL (0.6-1.3); POTASSIUM 4.6 mmol/L (3.5-4.5); TOTAL PROTEIN 7.4 g/dL (6.4-8.9)
[2023-10-15] MEDS ORDERED: cefTRIAXone 1 GM VIAL IM STA (21:43)
[2023-10-15] MEDS ORDERED: LIDOCAINE 1% 2 ML VIAL ONE ×2 (21:51→21:59)
[2023-10-15] MEDS ORDERED: cefTRIAXone 2 GM in SODIUM CHLORIDE 0.9% MINIBAG 100 ML IV STA (21:56)
[2023-10-15] MEDS ORDERED: cefTRIAXone 2 GM VIAL ONE (22:32)
[2023-10-15 22:43] VITALS: O2SAT 89
[2023-10-15 23:19] VITALS: BP 164/81
[2023-10-15 23:39] LABS: B. PARAPERTUSSIS- RESP PCR PAN NOT DETECTED; B. PERTUSSIS- RESP PCR PANEL NOT DETECTED; C. PNEUMONIAE- RESP PCR PANEL NOT DETECTED; CORONAVIRUS 229E-RESP PCR NOT DETECTED; CORONAVIRUS HKU1-RESP PCR NOT DETECTED; CORONAVIRUS NL63-RESP PCR NOT DETECTED; CORONAVIRUS OC43-RESP PCR NOT DETECTED; HUMAN METAPNEUMOVIRUS NOT DETECTED; INFLUENZA A- RESP PCR PANEL NOT DETECTED; INFLUENZA B - RESP PCR PANEL NOT DETECTED; M. PNEUMONIAE- RESP PCR PANEL NOT DETECTED; PARAINFLUENZA VIRUS 1 NOT DETECTED; PARAINFLUENZA VIRUS 2 NOT DETECTED; PARAINFLUENZA VIRUS 3 NOT DETECTED; PARAINFLUENZA VIRUS 4 NOT DETECTED; RHINOVIRUS/ENTEROVIRUS NOT DETECTED; RSV- RESP PCR PANEL NOT DETECTED; SARS-CoV-2 -RESP PCR PANEL NOT DETECTED
== END 2023-10-15 23:13 | disposition home or self-care (01) ==
LOC: ED 20:01
DX: J44.9 Chronic obstructive pulmonary disease, unspecified (principal); J18.9 Pneumonia, unspecified organism; Z99.81 Dependence on supplemental oxygen; Z11.52 Encounter for screening for COVID-19; I10 Essential (primary) hypertension; E78.00 Pure hypercholesterolemia, unspecified; E11.9 Type 2 diabetes mellitus without complications; Z79.899 Other long term (current) drug therapy; Z79.51 Long term (current) use of inhaled steroids; Z79.82 Long term (current) use of aspirin; Z79.84 Long term (current) use of oral hypoglycemic drugs
CPT/HCPCS: 36415; 71045; 80053; 83690; 83880; 85025; 87633; 93005; 96365; 99284; A9270; J7512

== ENCOUNTER 2023-12-25 09:38 | Outpatient (CLI) | payer MEDICARE, MEDICAID ==
[2023-12-25 12:00] LABS: BASOPHILS # (AUTO) 0.1 10^3/uL (0.0-0.1); BASOPHILS % (AUTO) 0.9 %; EOSINOPHILS # (AUTO) 0.5 10^3/uL (0.0-0.7); EOSINOPHILS % (AUTO) 8.4 %; HCT - HEMATOCRIT 54.1 % (37.0-47.0); HGB - HEMOGLOBIN 16.1 g/dL (12.0-16.0); LYMPHOCYTES # (AUTO) 1.5 10^3/uL (1.5-3.5); LYMPHOCYTES % (AUTO) 26.7 %; MEAN CORPUSCULAR HGB CONC 29.8 g/dL (32.0-36.0); MEAN CORPUSCULAR VOLUME 90.8 fL (81.0-99.0); MEAN PLATELET VOLUME 10.9 fL (7.9-10.8); MONOCYTES # (AUTO) 0.3 10^3/uL (0.0-1.0); MONOCYTES % (AUTO) 6.2 %; NEUTROPHILS # (AUTO) 3.2 10^3/uL (1.5-6.6); NEUTROPHILS % (AUTO) 57.6 %; PLT - PLATELET COUNT 233 10^3/uL (130-450); RED BLOOD COUNT 5.96 10^6/uL (4.20-5.40); RED CELL DISTRIBUTION WIDTH 15.5 % (12.0-15.0); WHITE BLOOD COUNT 5.5 x10^3/uL (4.8-10.8)
[2023-12-25 12:16] LABS: ESTIMATED AVERAGE GLUCOSE 163 mg/dL (70-100); HEMOGLOBIN A1c% 7.3 % (4.27-6.07)
[2023-12-25 12:27] LABS: THYROID STIMULATING HORMONE 2.92 uIU/mL (0.34-5.60)
[2023-12-25 12:38] LABS: ALBUMIN 4.1 g/dL (3.2-5.5); ALBUMIN/GLOBULIN RATIO 1.3 (1.0-2.2); ALKALINE PHOSPHATASE 60 IU/L (42-121); ALT ALANINE AMINOTRANSFERASE 11 IU/L (10-60); AST ASPARTATE AMINOTRANSFERASE 13 IU/L (10-42); BILIRUBIN,TOTAL 0.6 mg/dL (0.2-1.0); BUN - BLOOD UREA NITROGEN 10 mg/dL (6-20); CARBON DIOXIDE - CO2 39 mmol/L (21-32); CHLORIDE 97 mmol/L (101-111); CHOL/HDL RATIO 4.2 (<4.4); CHOLESTEROL 180 mg/dL; CREATININE 0.6 mg/dL (0.6-1.3); GFR - MDRD 101 (>89); GLUCOSE 128 mg/dL (74-104); HDL CHOLESTEROL 43 mg/dL; LDL CHOLESTEROL,CALCULATED 88 mg/dL; POTASSIUM 4.1 mmol/L (3.5-4.5); SODIUM 141 mmol/L (135-145); TOTAL PROTEIN 7.2 g/dL (6.4-8.9); TRIGLYCERIDES 247 mg/dL (48-352); VLDL CHOLESTEROL 49 mg/dL
== END 2023-12-25 09:39 | disposition home or self-care (01) ==
LOC: LAB.N 09:38
PROVIDERS: ATTEND Internal Medicine
DX: E78.5 Hyperlipidemia, unspecified (principal); E11.9 Type 2 diabetes mellitus without complications; J45.998 Other asthma; F32.A Depression, unspecified
CPT/HCPCS: 36415; 80053; 80061; 82043; 82570; 83036; 83721; 84443; 85025

== ENCOUNTER 2024-04-26 14:24 | Outpatient (CLI) | payer MEDICARE ==
[2024-04-26 18:05] LABS: CALCIUM 9.3 mg/dL (8.5-10.3); CREATININE 0.6 mg/dL (0.6-1.3); POTASSIUM 4.5 mmol/L (3.5-4.5)
[2024-04-26 21:22] LABS: ESTIMATED AVERAGE GLUCOSE 123 mg/dL (70-100); HEMOGLOBIN A1c% 5.9 % (4.27-6.07)
== END 2024-04-26 14:25 | disposition home or self-care (01) ==
LOC: LAB.N 14:24
PROVIDERS: ATTEND Internal Medicine
DX: E11.9 Type 2 diabetes mellitus without complications (principal)
CPT/HCPCS: 36415; 80048; 83036

== ENCOUNTER 2024-05-14 10:57 | Outpatient (CLI) | payer MEDICARE ==
--- NOTE | 2024-05-15 08:39 | Mammography Report ---
BILATERAL DIGITAL SCREENING MAMMOGRAM 3D/2D: 05/14/2024 CLINICAL: Routine screening. Comparison is made to exams dated: 05/25/2022 mammogram, 12/31/2020 mammogram, and 01/04/2016 mammogram - [facility]. Both breasts are almost entirely fatty (category a/<25% glandular tissue). There are benign calcifications in the right breast. There also are benign post operative findings i n the right breast. No significant masses, calcifications, or other findings are seen in either breast. There has been no significant interval change. IMPRESSION: BENIGN There is no mammographic evidence of malignancy. A 1 year screening mammogram is recommended. Based on the Tyrer Cuzick model (a risk assessment model) the patient's lifetime risk is 8.8% and her 10 year risk is 3.8%. According to the ACR, ACS, and NCCN guidelines, an annual breast MRI exam dilcia g with mammogram is recommended if the patient's lifetime risk is 20% or greater. This exam was interpreted at Station ID: [id number]. NOTE: For mammograms, a report in lay terms will be sent to the patient. Approximately 15% of breast malignancies will not be visualized mammographically. In the management of a palpable breast mass, a negative mammogram must not discourage biopsy of a clinically suspicious lesion. Electronically Signed By: Charisse ash/andre:05/14/2024 12:23:17 letter sent: No_Letter ACR BI-RADS Category 2: Benign Finding(s) 3342F PARENCHYMAL PATTERN: (F) - The breast(s) demonstrate(s) diffuse fatty replacement. BI-RADS CATEGORY: (2) - 2 RECOMMENDATION: (ANNUAL) - Recommend routine annual screening mammography. [id number] 1 year screening LATERALITY: (B)
== END 2024-05-14 10:58 | disposition home or self-care (01) ==
LOC: DI.N 10:57
PROVIDERS: ATTEND Internal Medicine
DX: Z12.31 Encounter for screening mammogram for malignant neoplasm of breast (principal); R92.1 Mammographic calcification found on diagnostic imaging of breast

== ENCOUNTER 2024-08-15 07:55 | Outpatient (CLI) | payer MEDICARE ==
[2024-08-15 11:47] LABS: CREATININE,URINE 115.1 mg/dL; MICROALBUM/CREATININE RATIO,UR 13.9 ug/mg (<30.0); MICROALBUMIN,URINE 1.6 mg/dL
[2024-08-15 11:51] LABS: ALBUMIN 4.1 g/dL (3.2-5.5); ALBUMIN/GLOBULIN RATIO 1.6 (1.0-2.2); ALKALINE PHOSPHATASE 75 IU/L (42-121); ALT ALANINE AMINOTRANSFERASE 12 IU/L (10-60); AST ASPARTATE AMINOTRANSFERASE 16 IU/L (10-42); BILIRUBIN,TOTAL 0.6 mg/dL (0.2-1.0); BUN - BLOOD UREA NITROGEN 11 mg/dL (6-20); CALCIUM 9.5 mg/dL (8.5-10.3); CARBON DIOXIDE - CO2 38 mmol/L (21-32); CHLORIDE 95 mmol/L (101-111); CHOL/HDL RATIO 6.5 (<4.4); CHOLESTEROL 284 mg/dL; CREATININE 0.6 mg/dL (0.6-1.3); GFR - MDRD 101 (>89); GLUCOSE 136 mg/dL (74-104); HDL CHOLESTEROL 44 mg/dL; LDL CHOLESTEROL,CALCULATED 175 mg/dL; POTASSIUM 4.2 mmol/L (3.5-4.5); SODIUM 138 mmol/L (135-145); TOTAL PROTEIN 6.6 g/dL (6.4-8.9); TRIGLYCERIDES 324 mg/dL; VLDL CHOLESTEROL 65 mg/dL
[2024-08-15 20:25] LABS: ESTIMATED AVERAGE GLUCOSE 146 mg/dL (70-100); HEMOGLOBIN A1c% 6.7 % (4.27-6.07)
== END 2024-08-15 07:56 | disposition home or self-care (01) ==
LOC: LAB.N 07:55
PROVIDERS: ATTEND Internal Medicine
DX: E11.9 Type 2 diabetes mellitus without complications (principal); E78.5 Hyperlipidemia, unspecified
CPT/HCPCS: 36415; 80053; 80061; 82043; 82570; 83036; 83721